=== PATIENT | male | born 1930 | race Caucasian/White ===

== ENCOUNTER 2017-04-20 09:00 | Inpatient (IN) | payer MEDICARE, BC ==
[~2017-04-20] VITALS: Ht 167.6 cm; Wt 109.8 kg
--- NOTE | ~2017-04-20 | DS ---
PATIENT'S NAME: AZAEL ZAMBRANO [facility] AGE: 86 Y [address] ROOM: G6321 [place], [place] [address] LOCATION: GPCU ADMIT DATE: 04/20/2017 Discharge Summary DISCHARGE DATE: 05/08/2017 FAMILY PHYSICIAN: Char Courtney ATTENDING PHYSICIAN: Dahlia Lainez FINAL DIAGNOSES: 1. Xut-KR-qgbjpqxwk myocardial infarction, status post CABG, three-vessel. 2. 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 3. Hematuria, status post TURP. 4. Insulin-dependent diabetes mellitus, poorly controlled. 5. Right carotid artery disease. 6. Acute on chronic hypoxic respiratory failure. 7. Benign prostatic hypertrophy with bladder outlet obstruction. 8. Essential hypertension. 9. Acute on chronic systolic ejection fraction, EF of 45%. 10. Paroxysmal atrial fibrillation. 11. Iron deficiency. PROCEDURES: 1. He had a left heart catheterization on April 21. 2. Right carotid endarterectomy on April [address] Freitas. 3. CABG three-vessel on April [address] Martinez. 4. Kidney biopsy in 2013. HISTORY OF PRESENT ILLNESS: Please see the history and physical for details of admission. In short, the patient presented one day after having his cystoscopy performed in [place] for benign prostatic hypertrophy and outlet obstruction. He went home, and post procedure did fine. He notes that he was eating at a diner and had experienced shortness of breath while eating a sandwich and he felt chilled. He was able to go home and take a nap, but he got pretty uncomfortable and described some aching, and an increasing shortness of breath. He did call the EMS and was taken to the hospital in [place] where he was found to have an elevated troponin and had acute hypoxic respiratory failure. The patient was transferred here for definitive care. LABORATORY DATA AND DIAGNOSTIC STUDIES: Sodium on admission was 141, it has remained very stable, and was 141 at discharge. Potassium on admission was 3.9, it got as high as 5.3 on April 26, and most prior to discharge was 4.3. CO2 on admission was 22, and most prior to discharge was 30. BUN on admission was 33, got as high as 62 on April 26, and most prior to discharge was 43. Creatinine on admission was 2.1, and most prior to discharge it was 2.1. Magnesium most prior to discharge was 2.3. Cholesterol was 88, triglycerides were 154, HDL was 28, and LDL was not able to be calculated. On admission, his troponin was 55.3. His proBNP on admission was 16,746. Hemoglobin A1c PATIENT'S NAME: AZAEL ZAMBRANO [facility] AGE: 86 Y [address] ROOM: [place] [address] LOCATION: GPCU ADMIT DATE: 04/20/2017 Discharge Summary DISCHARGE DATE: 05/08/2017 FAMILY PHYSICIAN: Char Courtney ATTENDING PHYSICIAN: Dahlia Lainez was 7.2. C-reactive protein on admission was 15.4. White blood cell count on admission was 21.4, it did come down; postoperatively, it did jump back up 18.3 and then came down, most prior to discharge was 8.8. Hemoglobin on admission was 12.3, got as low as 8, and then most prior to discharge was 11.3. Platelet count at discharge was 413. His CMP and ANCA were negative. Urinalysis on admission with 15 to 100 reds. Microbiology Data: All was negative. Ultrasound of his kidney on admission showed thinning of the cortex. CTA did not show any severe disease. Chest x-ray on admission did show pulmonary edema. Cardiovascular Data: Echocardiogram on admission showed that the ejection fraction was 45% to 50%, and mildly dilated left atrium. He had moderate concentric left ventricular hypertrophy. Venous Doppler on admission was negative. Duplex scanning did show that he had right carotid artery disease severe at 60% to 79% and left at 60% to 79%. HOSPITAL COURSE: The patient was admitted, and was felt to have had a non-ST- elevated myocardial infarction. Cardiology was consulted as well as Dr. Brewster from the Urology standpoint. The patient did undergo a cystoscopy with Dr. Nate Durán postoperatively for the hematuria. Please see his note for full details. Dr. Santana did feel that the patient needed to go to the [facility]. We did give him aggressive hydration around the heart catheterization because of his renal dysfunction. Nephrology did follow along. His heart catheterization returned showing that he had multi-vessel disease. Dr. Martinez was consulted. The patient initially planned to go to the Operating Room on April 24. He was in acute congestive heart failure, and we did diurese him, watching his kidney function closely and holding medications that were somewhat toxic for the kidneys. His duplex Doppler scan did indicate that he needed carotid endarterectomy. Dr. Freitas did see him. The planned surgery was then moved back to April 26, at which time, the patient had both a three- vessel bypass and a right carotid endarterectomy. Please see the operative notes for both of those. Postoperatively, the patient was seen in the Intensive Care Unit. He did overall do quite well postoperatively. He was extubated immediately postop and we were able to get him weaned off the pressors. He was able to move back to PCU. We did work very aggressively with adjusting his insulin, using a long-acting insulin and the carb count to bring his sugars under better control. He did have a chest tube for a while. Renal did follow along. I did order some studies to evaluate because it was PATIENT'S NAME: AZAEL ZAMBRANO [facility] AGE: 86 Y [address] ROOM: [address] [address] LOCATION: GPCU ADMIT DATE: 04/20/2017 Discharge Summary DISCHARGE DATE: 05/08/2017 FAMILY PHYSICIAN: Char Courtney ATTENDING PHYSICIAN: Dahlia Lainez found that he had significant proteinuria. He was started on amiodarone, and we were able to get him started back on his Eliquis. The decision was made to continue him on the short and long-acting insulins as he would get better blood sugar control. Because of the proteinuria, Nephrology did a number of studies including a 24-hour urine protein electrophoresis, serum protein electrophoresis, serum for free light chains, ANCA panel, STEVE, double-stranded DNA, complements, hepatitis B serology, and hepatitis C serology. While these studies were pending, it was felt that we might need to proceed with a kidney biopsy. We did have to hold his Eliquis in order to do this. The Eliquis was held, and the patient did have a kidney biopsy on Monday, May 05. He was monitored through the weekend, and it was felt that he would be stable for discharge. During the time that he was in the hospital, adjustments were made in his medications to control his blood pressure. Adjustments were made into his insulin doses, to try and keep his sugars between the 120 and 180 range. He did work with PT and OT. We did eventually get his chest tube out. It was felt that he would need assistance, and that we would send him to the [facility] Bed. He is to see Dr. Batista and follow up in [place]. On discharge, he is to contact Dr. Nate Durán for appointment. Dr. Castañeda will see him on May 29, and he needs to see Dr. Martinez in two weeks. He also needs a followup appointment. That appointment can be arranged with a followup with Dr. Durán. He is to go on an 1800-calorie, 2-g sodium diet. He needs to have strict sternal precautions till June 07, and weightbearing as tolerated. He is currently on 2 L per nasal cannula. On admission, he only was 2 L at night. Song needs to remain in place until he sees Dr. Durán. He will need the diabetic nurse to work on carb counting. He can remove his sutures in his left ankle and groin on May 17. DISCHARGE MEDICATIONS: 1. Amiodarone 200 mg twice daily. 2. Lipitor 20 mg at bedtime. 3. Coreg 3.125 mg twice daily. 4. Vitamin D 400 units daily. 5. Colace 100 mg three times daily. 6. Pepcid 20 mg daily. 7. Lasix 40 mg daily. 8. Humibid LA 600 mg twice daily. 9. NovoLog mild sliding scale; NovoLog 3 units per 15 g of carb consumed three times daily with meals and with snacks. 10. Levemir 22 units at bedtime. 11. Synthroid 75 mcg daily. 12. MiraLAX 17 g twice daily. 13. Potassium 20 mEq daily. 14. Senokot two tablets at bedtime. 15. Flomax 0.4 mg twice daily. 16. Dulera 250/5 two puffs twice daily. PATIENT'S NAME: AZAEL ZAMBRANO [facility] AGE: 86 Y [address] ROOM: [address] [place], [place] [address] LOCATION: GPCU ADMIT DATE: 04/20/2017 Discharge Summary DISCHARGE DATE: 05/08/2017 FAMILY PHYSICIAN: Char Courtney ATTENDING PHYSICIAN: Dahlia Lainez 17. Tylenol 650 mg every four hours as needed. 18. Grayson 5/325 one every 4 hours as needed for pain. 19. Dulcolax 10 mg suppository daily as needed for constipation. 20. Dextrose 25 mL on the hypoglycemia protocol. 21. Glucagon 1 mg for hypoglycemia. 22. Glucose 16 g for hypoglycemia. 23. Milk of magnesia 30 mL daily for constipation. 24. Proventil two puffs every 4 hours as needed for shortness of breath. 25. Eliquis 2.5 mg twice daily. 26. Aspirin 81 mg daily. 27. Symbicort 160/4.5 two puffs twice daily. OVERALL PROGNOSIS AT DISCHARGE: Good. The patient did voice understanding of his condition and to follow up. CLIFTON MONTANEZ MD LAW/modl /[id number] CC: DO Nate Aguilera MD Daniel J McGowan, MD d: 05/09/17 0327 t: 05/09/17 1653, DISCHARGE SUMMARY
--- NOTE | ~2017-04-20 | OR ---
PATIENT'S NAME: AZAEL WANG [facility] AGE: 86 Y [address] ROOM: [facility] [place], [place] [address] LOCATION: GICU ADMIT DATE: 04/20/2017 OR/Procedure Report DISCHARGE DATE: FAMILY PHYSICIAN: SARAH MARTINEZ ATTENDING PHYSICIAN: FLEX ENCARNACION SURGEON: Rosalio Nova MD SALESFORCE ADMINISTRATOR: DATE OF PROCEDURE: 04/26/2017 PROCEDURE PERFORMED: The following lines were placed during the patient's right carotid endarterectomy and coronary artery bypass grafting. INDICATIONS: Azael Wang is an 86-year-old gentleman with a history of severe COPD, he is oxygen dependent, he is morbidly obese, hypothyroid, he has chronic renal insufficiency. He has also peripheral vascular disease in the form of right carotid stenosis and he has 3-vessel coronary artery disease. He is status post non-ST MA several days ago. He was seen last night prior to the procedure by Dr. Jackson, who discussed risks, benefits, and alternatives with the patient. He agreed to the plan as stated. I met the patient in the preop holding area this morning at approximately 06:20. He had no further questions and we proceeded. DESCRIPTION OF PROCEDURE: PROCEDURE #1: Placement of arterial line: The patient's right arm was selected, placed on the table, dorsiflexed the wrist, and sterilely prepped with chlorhexidine. Skin wheal was raised with 1% lidocaine over the radial pulse approximately 5 inches of the arm. The artery was then cannulated on the first pass using an Arrow art line kit. Good flash arterial blood was obtained. A wire that was then threaded into the artery and then the catheter threaded off the wire. This was flushed with heparinized saline and affixed to the patient's wrist using sterile Tegaderm and tape. No ultrasound was used to identify the arteries in the neck as the right carotid precluded placement there. We took the patient to OR #4 where he underwent uneventful induction of general anesthesia and intubation with an 8-0 tube. PROCEDURE #2: With the airway controlled procedure #[address], placement of central line. The patient was placed in Trendelenburg position. The area overlying the left subclavian was sterilely prepped with chlorhexidine while I scrubbed my hands, gloved, and gowned. Maximal sterile barrier was placed. At that point, a needle was inserted. An 18-gauge long needle was inserted at the junction of middle and distal thirds of the clavicle, aiming towards the sternum, took a couple of passes, but was able to obtain dark venous blood. The wire was PATIENT'S NAME: AZAEL WANG [facility] AGE: 86 Y [address] ROOM: [place] [address] LOCATION: GICU ADMIT DATE: 04/20/2017 OR/Procedure Report DISCHARGE DATE: FAMILY PHYSICIAN: SARAH MARTINEZ ATTENDING PHYSICIAN: FLEX ENCARNACION threaded without difficulty. Brief atrial pause revealing intraatrial placement. This resolved with pullback of the wire. At that point, a 9- Icelandic 10 cm introducer was inserted over the wire and this was then sutured in place with 2-0 silk. The central lumen was filled with an SLIC catheter. All lumens flushed and ariel freely. A 30 mL of blood was removed for the patient's venous solution. Then, the entire vein was covered with sterile Tegaderm and used for the duration of the case. At that point, the carotid artery was endarterectomized and repaired and the patient's drapes were removed. At that point, MIKAYLA was placed after suctioning the stomach with an 18-Icelandic nasogastric tube. The MIKAYLA probe was placed in the posterior pharynx and guided very gently given the patient's anticoagulation into the posterior pharynx and down into the esophagus. Pictures obtained were of good quality and adequate for interpretation. This was used for monitoring during the case. Thank you very much for allowing me to participate in Mr. Azael Wang's care. If you have any questions regarding the lines or MIKAYLA placement, please do not hesitate to call. MD ERIK PIKE/holly /[id number] d: 04/26/172002 t: 07/27/17 1553, OPERATIVE SUMMARY
--- NOTE | ~2017-04-20 | ENPV ---
Vascular Lower Extremity Vein Mapping Procedure Demographics Patient Name AZAEL ZAMBRANO Date of Study 04/22/2017 Patient Number [id number] Gender Male Date of 1930 Age 86 Visit Number [id number] Height 66 Accession Number [id number] Weight 261.01 Referring Michelle Pepe DO Interpreting Fortino Leon MD Physician Roz PATINO Physician Physician Ordering Physician Michelle Pepe It Operations Specialist DO Rubber Cutting Machine Tender Mona Santamaria RDCS, RVT Conclusions Summary Bilateral adequate veins. Procedure Type of Study: Veins:Lower Extremity Vein Mapping, Vein Mapping NH. Indications for Study:Pre-op CABG. Appropriate Use Criteria:7 Allergies - Sulfa. - Penicillin. - Antibiotics:(Cipro). Patient Status:Routine. Study Location:Inpatient Portable. Technical Quality:Adequate visualization. Risk Factors - The patient's risk factor(s) include: diabetes mellitus, dyslipidemia, arterial hypertension and prior NM . - The patient has a former tobacco history. - The patient's last creatinine was 1.8 mg/dl. Velocities are measured in cm/s ; Diameters are measured in cm + ++--------++--------+ !Superficial - Great Saphenous Vein !!Right !!Left ! + ++--------++--------+ !Location !!Diameter!!Diameter! + ++--------++--------+ !Sapheno Femoral Junction !!0.8 !!0.65 ! + ++--------++--------+ !GSV High Thigh !!0.59 !!0.53 ! + ++--------++--------+ !GSV Mid Thigh !!0.53 !!0.54 ! + ++--------++--------+ !GSV Low Thigh !!0.37 !!0.34 ! + ++--------++--------+ !GSV Knee !!0.36 !!0.36 ! + ++--------++--------+ !GSV High Calf !!0.37 !!0.27 ! + ++--------++--------+ !GSV Mid Calf !!0.34 !!0.39 ! + ++--------++--------+ !GSV Low Calf !!0.43 !! ! + ++--------++--------+ Signature dtt: JORGE DOBSON dtyahaira: 04/22/17 1150 Physician Self Edit
--- NOTE | ~2017-04-20 | CATH ---
Cardiac Diagnostic + PCI Report Demographics Patient Name JUAN MANUEL Mejia Gender Male Date of 1930 Age 86 year(s) Patient Number [id number] Date of Study 04/21/2017 Visit Number [id number] Room Number G6325 [place] [id number] Ht 167.64 cm Wt 118.39 kg Referring [facility] Primary Physician Physician Pascale HORN Performing [facility] Secondary Physician Physician Pascale HORN Diagnostic [facility] Assisting Physician Physician Pascale HORN Interventional [facility] Physician Design Printing Machine Setter Physician Pascale HORN Findings and Conclusions Diagnostic Findings and Conclusion 1.Triple vessel CAD, obstructive lesions in distal RCA, mid to distal LAD and diagonal, completely occluded prox cx. 2. LVEDP 18 mmHg. Diagnostic Recommendations 1. PTCA of Circ to restore flow and evaluate if vessel is big enough for CABG 2. CTS consult for CABG Interventional Findings and Conclusion S/P Successful PTCA of Circ with 10% residual, small vessel Interventional Recommendations Dr Martinez's plan for CABG on Monday if patient agreeable. Continue ACS protocol and heparin drip for now. Procedure Description The patient was brought to the diagnostic cardiac catheterization-EP laboratory in the fasting, non-sedated state. Informed consent was obtained in the written and verbal form after the risks and benefits were explained. The patient had no further questions and agreed to proceed. The planned puncture-incision site(s) were shaved and prepped with ChloraPrep and draped in the usual sterile manner. Conscious sedation, supplemental oxygen, and pain control medications were delivered by a registered nurse under physician guidance. Surface ECG rhythm, blood pressure measurement, and pulse oximetry were monitored throughout the procedure. Arterial access. The access site was infiltrated with lidocaine. The vessel was entered with the Seldinger technique. A sheath was advanced into the vessel and used for catheter placement. Selective left coronary angiography. A catheter was advanced into the left coronary vessel ostium under Fluoroscopic guidance. Contrast was injected by hand. Images were obtained in multiple projections. Selective right coronary angiography. A catheter was advanced into the right coronary vessel ostium under fluoroscopic guidance. Contrast was injected by hand. Images were obtained in multiple projections. Left heart catheterization. A catheter was advanced across the aortic valve to the left ventricle under fluoroscopic guidance. Resting hemodynamics were obtained. Angioplasty: A guiding catheter was used to intubate the vessel. A 0.14 wire was used to cross the lesion. A balloon was positioned across the lesion and inflated. Post placement angiograms were performed. Arterial artery hemostasis was achieved. The patient was transferred to a regular nursing floor via cart accompanied by a nurse. The patient left the laboratory in stable condition. Diagnostic Cath Status: Urgent Interventional Cath Status: Urgent Procedure Procedure Type Diagnostic procedure:Angiography:, Coronary Angios w/LHC PCI procedure:PTCA:, CFX Indications: NSTEMI. The procedure was explained in detail to the patient. Risks, complications and alternative treatments were reviewed. Written consent was obtained. Medications Reviewed with Patient prior to Procedure. Angiographic Findings Dominance: Right Cardiac Arteries and Lesion Findings LMCA: Lesion on LMCA: Proximal subsection.10% stenosis . LAD: There is a previous stent on Mid LAD Mid subsection showing focal ISR. There is a previous stent on Dist LAD Distal subsection showing diffuse ISR. There is a previous stent on 1st Diag Mid subsection showing focal ISR. Lesion on Prox LAD: Ostial.40% stenosis . Lesion on Mid LAD: Mid subsection.40% stenosis . Lesion on Dist LAD: Distal subsection.80% stenosis . Lesion on 1st Diag: Mid subsection.70% stenosis . LCx: Lesion on Prox CX: Proximal subsection.100% stenosis 10 mm length reduced to 10%. Pre procedure RAVINDER 0 flow was noted. Post Procedure RAVINDER III flow was present. The guidewire cross was successful.The lesion was diagnosed as a low risk lesion.Culprit lesion. Devices used - Runthrough NS .014 x 180. Number of passes: 1. - Emerge Balloon 2.0 x 15. 2 inflation(s) to a max pressure of: 8 madeline. RCA: There is a previous stent on Prox RCA Proximal subsection showing focal ISR. Lesion on Mid RCA: Mid subsection.60% stenosis . Lesion on Dist RCA: Distal subsection.80% stenosis . Lesion on 1st RPL: Mid subsection.60% stenosis . Ramus: Lesion on Ramus: Mid subsection.10% stenosis . Coronary Tree Procedure Data Procedure Date Date: 04/21/2017Start: 01:28 PMEnd: 02:09 PM Entry Locations - Retrograde Percutaneous access was performed through the Right Radial artery (Primary location). A 6 Fr sheath was inserted. Unsuccessful closure attempt was performed using: an R band. Hemostasis was successfully obtained using Mechanical Compression. Closure Comments: R) band applied by Jessica. 13 ml of air. Procedure Medications Order and Administration + + + + + !Time !Medication !Dosage !Route ! + + + + 04/21/2017 01:24 !Versed !1 mg !I.V. ! !PM ! ! ! ! + + + + 04/21/2017 01:30 !Radial Verapamil !2.5 mg !I.A. ! !PM ! ! ! ! + + + + + !04/21/2017 01:32 !Heparin (ACC_3) !5000 units !I.V. ! !PM ! ! ! ! + + + + + 04/21/2017 01:46 !Angiomax (Bivalirudin) !90 mg !I.V. bolus ! !PM !(ACC_5) ! ! ! + + + + + !04/21/2017 01:48 !Angiomax (Bivalirudin) !1.75 mg/kg/hr!I.V. drip ! !PM !(ACC_5) ! ! ! + + + + + !04/21/2017 01:54 !Angiomax (Bivalirudin) ! !I.V. drip ! !PM !(ACC_5) ! ! ! + + + + + Devices Used - A5 Fr. BS JR 4 Diag. Catheterwas used for:Right coronary angiography. - A5 Fr. BS JL 3.5 Diag. Catheterwas used for:Left coronary angiography. - A6 Fr. EBU 3.5 Guide Catheterwas used for:Circumflex Intervention. Contrast Material - Isovue 36123 ml Fluoroscopy Time: Diagnostic: 8:30 minutes. Total: 8:30 minutes. Fluoroscopy Dose: Diagnostic: 1557 mGy. Total: 1557 mGy. Estimated Blood Loss: 10 ml. Additional [facility] PCI Information PCI Indication:PCI for high risk Non-STEMI or unstable angina. Medical History Performed Procedures and Imaging Results - No [facility] stress or imaging studies were performed. Allergies - Sulfa. - Penicillin. - Antibiotics:(Cipro). Risk Factors The patient risk factors include:prior PCI;hypertension, family history of premature CAD, diabetes mellitus, last creatinine: 1.8 mg/dl, creatinine clearance: 50.24 ml/min, dyslipidemia, former tobacco use, prior heart failure and prior HI . Admission Data Admission Date: 04/20/2017 Admission Time: 10:50 AM Admit Source: [facility] Insurance Payors: Medicare. Admission Medications + +------+------+ + + + + !Medication !Dosage!Times !Last !Last !Administered !Comments ! ! ! !Per !Delivery !Delivery ! ! ! ! ! !Day !Date !Time ! ! ! + +------+------+ + + + + !Aspirin ! ! ! ! !Yes ! ! !(any) ! ! ! ! ! ! ! + +------+------+ + + + + !Statin (any)! ! ! ! !Yes ! ! + +------+------+ + + + + !ARB (any) ! ! ! ! !Yes ! ! + +------+------+ + + + + !Nitrates (iv! ! ! ! !Yes ! ! !or buccal) ! ! ! ! ! ! ! + +------+------+ + + + + !Beta Maddy! ! ! ! !Yes ! ! !(any) ! ! ! ! ! ! ! + +------+------+ + + + + Clinical Evaluation Leading to Procedure - The patient's CAD presentation was assessed as: Non-STEMI. - The patient's anginal syndrome during the past two weeks was assessed as: Class IV according to the [place] Cardiovascular [employer] Classification System (CCS). Anti-anginal medications were prescribed during the past two weeks. The medication is: Beta Blockers. - The patient has been in a state of heart failure within the past two weeks. - The patient's heart failure status was assessed as NYHA Class IV. Hemodynamics Condition: Rest O2 Consumption: Estimated: 260.27Heart Rate: 77 bpm Pressures (mmHg) +-----+ + !Site !Pressure ! +-----+ + !LV !126/14 ,20 ! +-----+ + !LV !127/13 ,18 ! +-----+ + !AO !135/60 (92) ! +-----+ + !LV !131/14 ,20 ! +-----+ + Valve Gradients and Areas + +---------+---------+---------+ +---------+ + !Valve !Peak !Mean !Area !Index !Flow !Source ! + +---------+---------+---------+ +---------+ + !Aortic !0 !0 ! ! ! ! ! + +---------+---------+---------+ +---------+ + !Aortic !0 !0 ! ! ! ! ! + +---------+---------+---------+ +---------+ + Shunts Oxygen Values O2 Capacity 141.44 O2 Consumption 260.27 Signatures dtt: PASCALE WILLIS dtd: 04/21/17 1328 Physician Self Edit
--- NOTE | ~2017-04-20 | OR ---
PATIENT'S NAME: AZAEL ZAMBRANO [facility] AGE: 86 Y [address] ROOM: [place] [address] LOCATION: GPCU ADMIT DATE: 04/20/2017 OR/Procedure Report DISCHARGE DATE: FAMILY PHYSICIAN: SARAH MARTINEZ ATTENDING PHYSICIAN: FLEX ENCARNACION SURGEON: Brenda Durán MD RETAIL COORDINATOR: DATE OF PROCEDURE: 04/21/2017 PREOPERATIVE DIAGNOSES: 1. Gross hematuria. 2. Inadequate Song catheter. POSTOPERATIVE DIAGNOSES: 1. Gross hematuria with clots. 2. Traumatic injury to the bulbous urethra. 3. Benign prostatic hypertrophy. PROCEDURES: 1. Cystoscopy and evacuation of clots. 2. Cystoscopy and fulguration of bleeding points. 3. Insertion of #20-Spanish three way Song catheter. DESCRIPTION OF PROCEDURE: After adequate anesthesia, he was prepped and draped. Cystoscope was passed. Anterior urethra was normal, and the bulbous urethral area was really chewed up, looked pretty nasty. I was able to manipulate the scope through this area. The external sphincter was normal. The prostatic fossa showed early BPH with bleeding. The bladder was filled with clots. With the Ellik evacuator, all the clots were irrigated from the bladder and then with the Bugbee, the prostatic bleeding was controlled. With using a stylet, I was able to easily insert a #20 Song catheter, irrigated easily and clearly. It was connected to continuous bladder irrigation, and he was accompanied to the recovery area. BRENDA DURÁN MD EKL/modl PATIENT'S NAME: AZAEL ZAMBRANO [facility] AGE: 86 Y [address] ROOM: [place] [address] LOCATION: GPCU ADMIT DATE: 04/20/2017 OR/Procedure Report DISCHARGE DATE: FAMILY PHYSICIAN: SARAH MARTINEZ ATTENDING PHYSICIAN: FLEX ENCARNACION /[id number] d: 04/21/17 1219 t: 04/26/17 0449, OPERATIVE SUMMARY
--- NOTE | ~2017-04-20 | CON ---
PATIENT'S NAME: AZAEL ZAMBRANO [facility] AGE: 86 Y [address] ROOM: [address] [place], [place] [address] LOCATION: GPCU ADMIT DATE: 04/20/2017 Consultation DISCHARGE DATE: FAMILY PHYSICIAN: Darlin Mclaughlin MD ATTENDING PHYSICIAN: FLEX ENCARNACION DATE OF CONSULTATION: 04/20/2017 REFERRING PHYSICIAN: ABBIE WILLIS MD REASON FOR CONSULTATION: GARFIELD versus GARFIELD on CKD versus CKD. HISTORY OF PRESENT ILLNESS: An 86-year-old male patient with history of hypertension, diabetes for 20-25 years, coronary artery disease status post PCI on multiple occasions at least with 5 stents, currently decided [place], transferred to our facility after developing an NSTEMI from [facility] at [facility]. During the routine lab test at [facility], creatinine was found to be 2 with estimated GFR of 30. Nephrology consultation has been called for renal insufficiency. The patient was not aware of any kind of renal insufficiency in the past. However, did mention that he was on metformin, which was put on hold by his primary care provider at [facility]. We got the lab records from [facility], which shows that the creatinine was between 2-2.2 in December this year. The patient's current creatinine is also in the 2 range. Notably, the patient does have significant bladder issues with neurogenic bladder, incomplete voiding, and increased postvoid residual. He was following with Urology because of a recent UTI episode, which was not getting corrected with conventional antibiotic regimen. Yesterday, at [facility], the patient did have a cystoscopy and went back to [place] and shortly after that, he started to have chest pain and significant shortness of breath for which he called 911 and was taken to the [facility], where he was found to have a troponin of 25 and significantly elevated CPK. The patient was subsequently transferred here for further evaluation and management. However, after coming here, the patient continues to have significant gross hematuria. Urology has been consulted. However, has not evaluated the patient's yet. However, tentative plan for CBI overnight. Cardiology is on the case and was planning for a cardiac cath, especially with history of hypertension, diabetes, significant coronary artery disease, multiple PCI, and rising troponin. The patient is currently although pain-free, but still has significant shortness of breath. No complaint of nausea, vomiting, or diarrhea. The patient has no fever, cough, chills, or rigor. REVIEW OF SYSTEMS: GENERAL: No fever. No chills or rigor. HEENT: No sore throat. No sinus congestion. CVS: Complaining of chest pain and shortness of breath as mentioned in the HPI. No leg swelling. RESPIRATORY: Shortness of breath as mentioned above. No cough or wheezing. GENITOURINARY: Significant gross hematuria. The patient does have a history of incomplete bladder evacuation and increased PVR and had a cystoscopy done yesterday. GASTROINTESTINAL: No abdominal pain. No abdominal distention. No nausea or vomiting. NEUROLOGIC: No weakness. No seizures. SKIN: No rash. No itching. ALLERGIES: No seasonal allergy. No hayfever. ENDOCRINE: No heat intolerance. No cold intolerance. PSYCHIATRIC: No sadness. No crying spells. No history of panic attack.PATIENT'S NAME: AZAEL ZAMBRANO [facility] AGE: 86 Y [address] ROOM: [place] [address] [facility] ADMIT DATE: 04/20/2017 Consultation DISCHARGE DATE: FAMILY PHYSICIAN: Darlin Mclaughlin MD ATTENDING PHYSICIAN: FELX ENCARNACION PAST MEDICAL HISTORY: 1. Hypertension. 2. Diabetes. 3. Coronary artery disease, status post multiple PCI with at least 5 stents. 4. Neurogenic bladder with incomplete bladder voiding. 5. Recent UTI. PAST SURGICAL HISTORY: Multiple PCI in the past. FAMILY HISTORY: History of hypertension and diabetes in the family in both parents. Father of coronary artery disease. SOCIAL HISTORY: Denied any significant alcohol or IV drug abuse. He was a former smoker. PHYSICAL EXAMINATION: VITAL SIGNS: Blood pressure 110/50, respiratory rate 18, pulse 69, temperature 98.4, saturating 96% on room air. GENERAL: Not in apparent distress. HEAD: Moist mucous membranes. Bilateral PERRLA, EOMI. NECK: No JVD, thyromegaly or lymphadenopathy. CVS: S1-S2 plus ejection systolic murmur at the aortic area. CHEST: Few bibasilar crackles. Otherwise, no wheeze. ABDOMEN: Soft, nontender, nondistended. Bowel sounds present. EXTREMITIES: No cyanosis, clubbing, jaundice. No dependent edema. MUSCULOSKELETAL: No limitation of range of motion. SKIN: No pallor, cyanosis, icterus. CHIEF NURSE EXECUTIVE: Alert and oriented x3. No gross findings. LABORATORY EVALUATION: Troponin 55.3, CPK 54. CBC: Hemoglobin 12.3, WBC 21.4, platelets 164. Chemistry: Sodium 141, potassium 3.9, chloride 109, bicarb 22, BUN 33, creatinine 2.1. Glucose 229, calcium 8.5, albumin 3.1, phosphorus 2.5, HBA1c 7.2, INR 1.04. UA: Specific gravity 1.010, pH 7, 4+ turbidity, 3+ protein, 2+ blood, 0-2 wbc, rbc 50-100. Bacteria negative. Urine and creatinine 67 and urine protein 2070 mg/dL. CK-MB 68.3.PATIENT'S NAME: AZAEL ZAMBRANO [facility] AGE: 86 Y [address] ROOM: [place] [address] LOCATION: GPCU ADMIT DATE: 04/20/2017 Consultation DISCHARGE DATE: FAMILY PHYSICIAN: Darlin Mclaughlin MD ATTENDING PHYSICIAN: FLEX ENCARNACION ASSESSMENT AND PLAN: 1. Renal insufficiency: Review of the old records suggest the patient's renal function is currently at baseline. Possible etiology of chronic kidney disease is hypertension, nephrosclerosis, as well as diabetic nephropathy, but significant proteinuria, sinus, and possible combination of both. We will try to get some more record from [facility] with trend of the urine protein creatinine ratio in the past. Now, the patient has almost 30 g proteinuria, which suggest that the patient has significant diabetic nephropathy. Apparently, the creatinine in the recent time is much better controlled. However, the patient has a long history of uncontrolled diabetes in the past. The patient has been taken off his metformin because of renal insufficiency and started on insulin regimen, but we are not sure about the compliance with dietary restriction or medication regimen. We will do a renal ultrasound, especially in context of chronic hematuria, recent onset hematuria, and to rule out any significant obstruction. Also, to look at the renal architecture, cortical echotexture, and corticomedullary differentiation. Please send UA, urine lytes, and urine osmolality. Monitor his renal panel closely, avoid hemodynamic stress, and continue gentle hydration with NS at the rate of 75 mL/h. 2. Dsz-OB-cgmyvro elevation myocardial infarction. Cardiology would like to do a cardiac cath with possible PCI tomorrow and placement of either bare- metal versus ROSALIO. Although, there is significant risk of contrast- induced nephropathy with advanced renal insufficiency in the background, but his troponin is rising. The patient has significant history of hypertension, diabetes, and coronary disease in the background. Considering the risk and benefit, the patient may have to undergo the cardiac cath. We will defer that to the Cardiology team for JESSE prophylaxis. We will continue the normal saline bolus at 75 mL/h for now preprocedure and 6 hours postprocedure. We will also start Mucomyst 1200 mg p.o. b.i.d. with one dose given tonight. We would encourage him to use iso-osmolar contrast at lowest volume possible and avoid repetitive exposure and the patient has been explained about the risk of contrast- induced nephropathy with possible need for dialysis if there is significant renal injury with the contrast exposure. 3. Diabetes. Last A1c today is 7.2, which is apparently better controlled as compared in the past as per the patient. We will get some old record about the diabetes control and medication regimen from [facility]. 4. Hypertension. Currently, blood pressure was at the lower side of the acceptable range. We will hold off losartan, especially in context of contrast exposure tomorrow and we will restart after the procedure. The patient has been educated to consume low-salt diet. Thank you for allowing me to participate in this patient's care. We will closely monitor the patient's progress along with you. SHAUN GORMAN MD /modl /[id number] d: 04/21/17 0247 t: 04/27/17 1610, CONSULTATION REPORT
--- NOTE | ~2017-04-20 | CON ---
PATIENT'S NAME: AZAEL ZAMBRANO [facility] AGE: 86 Y [address] ROOM: [address]6325 [place], [place] [address] LOCATION: GPCU ADMIT DATE: 04/20/2017 Consultation DISCHARGE DATE: FAMILY PHYSICIAN: Darlin Mclaughlin MD ATTENDING PHYSICIAN: FLEX ENCARNACION DATE OF CONSULTATION: 04/20/2017 REFERRING PHYSICIAN: PASCALE WILLIS MD REASON FOR CARDIOLOGY CONSULT: Chest pain and elevated cardiac enzymes. HISTORY OF PRESENT ILLNESS: This is an 86-year-old male who underwent a cystoscopy yesterday due to history of BPH and having difficulties with high post residual volumes. During his postprocedure time, he experienced complaints of chest pressure that he described as achiness across the top half of his chest above his sternum as well as heaviness to his arms, but states his arms are usually heavy. A plan was made to transfer to [facility] for higher level of care due to elevated cardiac enzymes. His enzymes upon admission to [place] are CPK of 854, CK-MB of 68.3, and troponin I of 55.3. At the time of this consult, he states his pain is almost completely resolved and still has just a very minor "ache" to his chest. His biggest concern now is of bright red blood from his Song, status post cystoscopy, but of note, he has been restarted on his Eliquis yesterday and is currently on a heparin drip per ACS protocol. PAST MEDICAL HISTORY: As listed in the HPI. Includes coronary artery disease with a history of stenting to his diagonal #1, mid LAD, and mid RCA in 2004. He received a second stent later in 2004 to his RCA and then overall experienced a non-Q- wave NV in 2011, which was managed medically. He also has a history of diabetes mellitus type 2, hypertension, hyperlipidemia, obstructive sleep apnea with CPAP use, paroxysmal atrial fibrillation, and long-term anticoagulation with Eliquis. FAMILY HISTORY: The patient's father had a history of "heart problems." He had a sister who due to a myocardial infarction. SOCIAL HISTORY: The patient is a former cigarette smoker. He smoked 2 to 3 packs of cigarettes per day for a total of 30 years. He quit smoking in 1976. He denies alcohol or illicit drug use. PATIENT'S NAME: AZAEL ZAMBRANO [facility] AGE: 86 Y [address] ROOM: [address] [place], [place] [address] [facility] ADMIT DATE: 04/20/2017 Consultation DISCHARGE DATE: FAMILY PHYSICIAN: Darlin Mclaughlin MD ATTENDING PHYSICIAN: FLEX ENCARNACION CURRENT MEDICATIONS: 1. Dulera 200/5 mcg 2 puffs inhaled twice daily. 2. Heparin IV per ACS protocol. 3. Betapace 40 mg p.o. daily. 4. Cozaar 25 mg p.o. daily. 5. Flomax 0.4 mg p.o. twice daily. 6. Lasix 20 mg p.o. daily. 7. Synthroid 75 mcg p.o. daily. 8. Lipitor 20 mg p.o. daily in the evening. 9. Macrobid 100 mg p.o. twice daily. 10. Mucomyst 1200 mg p.o. twice daily. 11. Vitamin D 400 units p.o. daily. 12. NovoLog subcu on a moderate sliding scale per a.c. and h.s. Accu-Cheks. MEDICATION ALLERGIES: Include penicillin, sulfa, and ciprofloxacin. REVIEW OF SYSTEMS: Pertinent positive review of systems listed in the HPI. All other review of systems evaluated and negative. PHYSICAL EXAMINATION: VITAL SIGNS: Temperature 97.8, pulse 74, respirations 20, blood pressure 125/60, O2 saturation 96% on 2 L nasal cannula. The patient weighs 118.9 kilograms. SKIN: [place], warm, and dry. EYES: Sclerae clear. No xanthelasma. ENT: Oral mucosa is pink and moist. No jugular venous distention. No carotid bruits. CHEST: Respirations are even and unlabored. LUNGS: Clear to auscultation. His lung sounds are diminished to bilateral lower lobes. HEART: Irregular rate and rhythm. Normal S1, S2. No murmurs, rubs, or gallops. ABDOMEN: Soft and nontender. MUSCULOSKELETAL: Equal muscle strength to upper and lower extremities bilaterally against resistance. EXTREMITIES: Peripheral pulses palpable. No clubbing or cyanosis. Does have trace lower extremity edema present. PSYCH: Alert and oriented. Mood and affect are appropriate. IMPRESSION AND PLAN: Per Dr. Pascale Willis. 1. Non-ST elevated myocardial infarction. Plan will be to trend his cardiac enzymes and check an echocardiogram to fully evaluate ejection fraction PATIENT'S NAME: AZAEL ZAMBRANO [facility] AGE: 86 Y [address] ROOM: [address] [address] [facility] ADMIT DATE: 04/20/2017 Consultation DISCHARGE DATE: FAMILY PHYSICIAN: Darlin Mclaughlin MD ATTENDING PHYSICIAN: FLEX ENCARNACION as well as look for wall motion or valvular abnormalities. Initial plan was to urgently taken him to the catheterization suite for evaluation of his coronary anatomy, but on full evaluation of his hematuria as well as ezijr-gb-jijauru kidney injury, plan was made to hydrate and monitor and receive full consults and recommendations before proceeding with heart cath. 2. Coronary artery disease. We will continue his home medications and continue to monitor with EKG closely. 3. Paroxysmal atrial fibrillation. We will continue his sotalol and he is anticoagulated currently with heparin. We will probably need to restart his Eliquis prior to discharge for long-term anticoagulation. 4. Diabetes mellitus. 5. Hypertension. 6. Hyperlipidemia. Thank you to the Hospitalist Service for this consult. We will continue to monitor, evaluate, and treat as appropriate along with you. Thank you for allowing [facility] to interact in the care of this patient. PASCUAL NGO APRN FOR MD LISSETTE THOMAS/holly /[id number] d: 04/20/17 2333 t: 05/09/17 1752, CONSULTATION REPORT
--- NOTE | ~2017-04-20 | OR ---
PATIENT'S NAME: AZAEL WANG [facility] AGE: 86 Y [address] ROOM: [address] [place] [id number] LOCATION: GPCU ADMIT DATE: 04/20/2017 OR/Procedure Report DISCHARGE DATE: FAMILY PHYSICIAN: SARAH MARTINEZ ATTENDING PHYSICIAN: FLEX ENCARNACION SURGEON: Moy Uribe DO CATERERS HELPER: DATE OF PROCEDURE: 04/26/2017 PREOPERATIVE DIAGNOSES: 1. Multivessel coronary artery disease. 2. Right internal carotid stenosis. 3. Chronic kidney disease, stage 3 to 4. 4. Obesity. 5. Diabetes. POSTOPERATIVE DIAGNOSES: 1. Multivessel coronary artery disease. 2. Right internal carotid stenosis. 3. Chronic kidney disease, stage 3 to 4. 4. Obesity. 5. Diabetes. PROCEDURE PERFORMED: Coronary artery bypass grafting x3, with left internal mammary artery bypass to the LAD, reverse saphenous vein graft to the diagonal #1, and reverse saphenous vein graft to the posterior descending artery. BRIEF HISTORY: Mr. Wang is an 86-year-old white male with the above-noted diagnosis. He has been brought to the operative suite today after informed consent was obtained. Today, he is having both CABG as well as a right carotid endarterectomy by Dr. Freitas. This has been performed without complication by Dr. Freitas and we are now called to the operative suite. He has been re-sterilely prepped and draped to prepare for sternotomy with lower extremity vein harvest. His carotid incision was sterilely packed and will be closed at the end of the bypass procedure. Sternal incision was made. The sternum was divided in the midline with sternal saw. Marrow and sternal edges were made hemostatic with electrocautery and Jarvis. Concurrently to this, the saphenous vein was harvested endoscopically from the lower extremity. The mammary retractor was placed. Left internal mammary artery was harvested in standard fashion with surgical clips and electrocautery. Prior to its division, the patient was fully heparinized. The mammary was then divided and prepared for bypass. Mammary retractor was removed and a sternal retractor was applied. Pericardium was opened. Pericardial wall was created, and cannulation sutures were placed in the ascending aorta and right atrium for bypass cardioplegia cannulas. The patient was then cannulated and connected PATIENT'S NAME: AZAEL WANG [facility] AGE: 86 Y [address] ROOM: [id number] [place], [place] [address] LOCATION: GPCU ADMIT DATE: 04/20/2017 OR/Procedure Report DISCHARGE DATE: FAMILY PHYSICIAN: SARAH MARTINEZ ATTENDING PHYSICIAN: FLEX ENCARNACION to the bypass pump without difficulty. Crossclamp was applied. Antegrade and retrograde cardioplegia was given and the heart arrested without difficulty. Posterior descending artery was identified and then opened and vein graft anastomosed to this with 7-0 Prolene. It was sized appropriately and then connected to the cardioplegia system. Another 500 milliliters of vein graft and retrograde cardioplegia was given and this was done after each venous distal anastomosis. Similar venous distal anastomosis was then created with the diagonal artery and then the left internal mammary artery was anastomosed to the left anterior descending artery again in end-to-side fashion with 7-0 Prolene. With this completed, the bulldog was removed from the mammary and the distal flow was noted as well as an intact anastomosis. The cross-clamp was now removed and a partial occlusion clamp was applied. Warm blood was now given via the retrograde cannula and the vein grafts, and we performed our proximal anastomosis. This was done with 4-0 punch and 6-0 Prolene. With these completed, the vein grafts were de-aired, bulldog was removed, and distal flow was given. Distal sites were hemostatic. Proximal sites were hemostatic. Two atrial pacemakers were placed. Spontaneous sinus rhythm had returned, but it was bradycardic in the 50s, therefore, we began atrial pacing at 80. Discontinued retrograde cannula and began the ventilations. We then weaned from cardiopulmonary bypass without difficulty. The venous cannula was removed, and appropriate volume returned from the pump to the patient. The ascending aortic cannula was now removed. Protamine was given. Copious amounts of antibiotic-infused saline was used to irrigate the sternum and mediastinum. Three chest tubes were placed, one left pleural, one posterior pericardial, one anterior mediastinal, and the temporary ventricular wire was placed. The sternum was then approximated with the ZipFix system and soft tissues were irrigated again and closed in layered fashion. All sponge, instrument, and needle counts were correct. The patient was undraped and then we re-prepped the right carotid endarterectomy incision with Betadine paint and scrub and then sterilely draped the area. The Betadine soaked 4x4s were removed from the incision. The carotid endarterectomy site was intact, barring one small leak at the distal ICA, where a 7-0 stitch was placed and this corrected this. The remainder of the soft tissues had no significant bleeding. We did replace 2 clips that were slightly dislodged and no bleeding was appreciated. The incision was then closed in a layered fashion with 0 Vicryl, 2-0 Vicryl, and 4-0 Monocryl. The patient tolerated the procedure well, was transferred to the intensive care unit in stable condition. MOY URIBE DO MCB/modl PATIENT'S NAME: AZAEL WANG [facility] AGE: 86 Y [address] ROOM: [place] [address] LOCATION: GPCU ADMIT DATE: 04/20/2017 OR/Procedure Report DISCHARGE DATE: FAMILY PHYSICIAN: SARAH MARTINEZ ATTENDING PHYSICIAN: FLEX ENCARNACION /[id number] d: 04/28/17 1226 t: 04/30/17 0310, OPERATIVE SUMMARY
--- NOTE | ~2017-04-20 | OR ---
PATIENT'S NAME: AZAEL ZAMBRANO [facility] AGE: 86 Y [address] ROOM: [place] [address] LOCATION: GICU ADMIT DATE: 04/20/2017 OR/Procedure Report DISCHARGE DATE: FAMILY PHYSICIAN: SARAH MARTINEZ ATTENDING PHYSICIAN: FLEX ENCARNACION SURGEON: Edward Freitas MD GRADE CHECKER: DATE OF PROCEDURE: 04/26/2017 PREOPERATIVE DIAGNOSIS: High-grade right internal carotid artery stenosis. POSTOPERATIVE DIAGNOSIS: High-grade right internal carotid artery stenosis. PROCEDURE: Right carotid endarterectomy with bovine pericardial patch. AUTOMATION AND CONTROL ENGINEER: LINNETTE Blake. ANESTHESIA: General. ESTIMATED BLOOD LOSS: 50 mL. OPERATIVE FINDINGS: High-grade stenosis of the right ICA with soft plaque. DESCRIPTION OF PROCEDURE: The patient was brought to the operating room, placed supine on the operating table, and placed under general anesthesia. Prepped and draped in a sterile manner. Preoperative time-out was performed. The patient had placement of right arterial line as well as a Song catheter as he was going to proceed on to CABG surgery. Preop time-out was performed. The patient received preoperative antibiotics. We made a standard incision along the anterior border of the sternocleidomastoid muscle, transected the platysma, transected the soft areolar tissue on the anterior border of the muscle, dissected out the internal jugular along its length, ligated and transected the facial vein, and retracted the internal jugular vein laterally. We then dissected out the common, the external, the internal, and the superior thyroid. We gave 5000 units of heparin. We clamped proximally and distally in all arteries; placed a clip on the superior thyroid; removed the clamp from the internal; performed a back pressure, which showed that the pressure was 55 to 60, therefore no shunt was required. We clamped the artery, made arteriotomy from the common to the internal using an 11-blade as well as De Jesus scissors. We then removed the plaque in its entirety from the carotid bulb as well as the distal internal. Once we were satisfied, we removed all the plaque in its entirety and applied standard 6-0 bovine pericardial patch using 2 running 6-0 Roscoe sutures. We allowed for backbleeding through all 3 major vessels and then completed anastomosis, removed the clamp from the external, clip from the superior thyroid, as well as the clamp from the common. We PATIENT'S NAME: AZAEL ZAMBRANO [facility] AGE: 86 Y [address] ROOM: [id number] [place] [address] LOCATION: [facility] ADMIT DATE: 04/20/2017 OR/Procedure Report DISCHARGE DATE: FAMILY PHYSICIAN: SARAH MARTINEZ ATTENDING PHYSICIAN: FLEX ENCARNACION waited 10 heartbeats and removed the clamp from the internal. Any bleeding sites were repaired with 6-0 Prolene. Thrombin was used locally in the wound. Once hemostasis was achieved, we packed the wound with gauze and then covered it with a sterile bandage. The patient was then proceeded on to CABG surgery. Dr. Martinez will dictate that portion of the surgery. MD LAKISHA BOCANEGRA/holly /[id number] d: 04/26/17 1805 t: 04/29/17 0959, OPERATIVE SUMMARY
--- NOTE | ~2017-04-20 | ECHO ---
Transthoracic Echocardiography Report (TTE) Demographics Patient Name AZAEL ZAMBRANO Date of Study 04/20/2017 Patient Number [id number] Visit Number [id number] Date of 1930 Room Number G6325 Gender Male Number Age 86 year(s) Referring Matilda Morris General Manager In Training Shayy Fernández, Physician RT,RVT,RDCS Physician Interpreting Mason Ashraf MD Med Spa Manager Physician Supervising Ordering Matilda Morris APRN MD/MLP Physician Nurse Stress Joss House Keeper Conclusions Summary The estimated left ventricular ejection fraction is 45-50%. [place] appears hypokinetic. The left atrium is mildly dilated by LA volume index measurement. Moderate concentric left ventricular hypertrophy. Dilated IVC with poor inspiratory collapse consistent with elevated RA pressure. There is severe pulmonary hypertension. The pulmonary pressure (RVSP) is 64 mmHg. Procedure Type of Study TTE procedure:2D Echocardiogram, M-Mode, Doppler , Color Doppler. Procedure Date Date: 04/20/2017 Start: 12:56 PM Study Location: Inpatient Portable Technical Quality: Adequate visualization Indications:Chest pain. Appropriate Use Criteria: 9 Patient Status: STAT HR: 69 bpm BP: 120/60 mmHg M-Mode/2D Measurements LV Diastolic Dimension: 5.55 cm LV Systolic Dimension: 4.39 cm LV Septum Diastolic: 1.48 cm LV Septum Systolic: 3 cm LV PW Diastolic: 1.34 cm LV PW Systolic: 2.62 cm Cardiac Output: 3.25 l/min AO Root Dimension: 3.4 cm RV Diastolic Dimension: 2.44 cm LA Dimension: 3.3 cm EF Estimated: 45 % LA volume: 80 ml LVOT: 2 cm LVOT VTI: 15 cm LV Stroke volume: 47.1 ml Doppler Measurements AV Peak Velocity: 1.09 m/s MV Peak E-Wave: 1.22 m/s AV Peak Gradient: 4.75 mmHg MV Peak A-Wave: 0.94 m/s AV Mean Gradient: 3 mmHg MV E/A Ratio: 1.29 LVOT Peak Velocity: 0.65 m/s MV P1/2t: 56 msec TR Gradient:46.79 mmHg PV Peak Velocity: 0.86 m/s Estimated RAP:10 mmHg PV Peak Gradient: 2.98 mmHg Estimated RVSP: 57 mmHg Estimated PASP: 56.79 mmHg E' Septal Velocity: 0.03 m/s A' Septal Velocity: 0.06 m/s MV E/E' Ratio: 37.4 Findings Left Ventricle Moderate concentric left ventricular hypertrophy. Diastolic assessment reveals Grade II pseudonormal diastolic function . Right Ventricle Normal right ventricle structure and function. Left Atrium The left atrium is mildly dilated by LA volume index measurement. Right Atrium Dilated IVC with poor inspiratory collapse consistent with elevated RA pressure. Mitral Valve Normal mitral valve structure and function. Aortic Valve Normal aortic valve structure and function. Tricuspid Valve There is severe pulmonary hypertension. The pulmonary pressure (RVSP) is 64 mmHg. Pulmonic Valve Normal pulmonic valve structure and function. Pericardial Effusion No evidence of pericardial effusion. Epicardial fat pad noted. Miscellaneous Visualized portions of the aortic root and ascending aorta appear normal in size. Pleural Effusion No evidence of pleural effusion. Signature dtt: ABBIE WILLIS dtd: 04/20/17 1256 Physician Self Edit
--- NOTE | ~2017-04-20 | HP ---
PATIENT'S NAME: AZAEL WANG [facility] AGE: 86 Y [address] ROOM: [id number] [place], [place] [address] LOCATION: GPCU ADMIT DATE: 04/20/2017 History & Physical DISCHARGE DATE: FAMILY PHYSICIAN: Darlin Mclaughlin MD ATTENDING PHYSICIAN: FLEX ENCARNACION DATE OF SERVICE: 04/20/2017 CHIEF COMPLAINT: Dyspnea with unstable angina. HISTORY OF PRESENT ILLNESS: Mr. Wang is a morbidly obese, elderly male, who presented to the emergency department via the [facility] yesterday evening of 04/19/2017. He is a gentleman with known coronary artery disease, who has had sedentary lifestyle since retiring and has been in his usual state of health until yesterday morning when he had cystoscopy performed at [place] for significant urinary symptoms of incontinence, UTI, and polyuria. During the procedure, he was found to have obstruction of the bladder neck. He was discharged to home following the procedure. He reports that he was sitting at [facility] when he experienced some shortness of breath while having a grilled cheese sandwich. He ended up eating half of a sandwich with some potato chips left there because he was having some chills and feeling shaky, but once he got outside in the warm, he felt fine and went home. The patient went home and tried to take a nap in his easy chair where he says he sleeps most of the time. However, he was noted to be rather uncomfortable by his significant other. He reports there was pain straight across his entire right and left chest. He describes only as "around aching" and rates at 5/10 associated with persistent dyspnea, which he had developed at the diner. In addition, he reports that his oxygen, which was usually supplemented at 2 L by nasal cannula at home, was resulting in oxygen saturation of only 88% to 89%. Around 8:00 p.m., the EMS was called and as above, he presented to [place] and was found to have a mildly elevated troponin. He was started on heparin drip and observed overnight, during which time his troponin was back to 24. Dr. Mclaughlin of [place] has been in contact with Dr. Parker last night and spoke to Dr. Santana this morning. She agreed to accept the patient in transfer for further evaluation and management. He appears much more comfortable now, although he still has some aching in his chest and in consideration of significant troponin, he will be taken to cardiac mason tender restoration labor promptly. PATIENT'S NAME: AZAEL WANG [facility] AGE: 86 Y [address] ROOM: [place] [address] [facility] ADMIT DATE: 04/20/2017 History & Physical DISCHARGE DATE: FAMILY PHYSICIAN: Darlin Mclaughlin MD ATTENDING PHYSICIAN: FLEX ENCARNACION PAST MEDICAL HISTORY: 1. Morbid obesity. 2. Chronic kidney disease. 3. BPH. 4. Dyslipidemia. 5. CHF. 6. Hypertension. 7. Coronary artery disease. 8. Diabetes mellitus type 2. 9. Hypothyroidism. 10. Obstructive sleep apnea, untreated. 11. Paroxysmal atrial fibrillation, on chronic anticoagulation therapy. PAST SURGICAL HISTORY: Resection of the patella on the right in 1953 when he was in [place]. ALLERGIES: SULFA, PENICILLIN, AND CIPRO. MEDICATIONS: 1. Aspirin 81 daily. 2. Symbicort one puff daily. 3. Nitrofurantoin 100 mg p.o. b.i.d. 4. Atorvastatin 20 mg daily. 5. Pioglitazone 15 mg daily. 6. Levothyroxine 75 mcg daily. 7. Lasix 20 mg daily. 8. Sotalol 40 mg b.i.d. 9. Eliquis 2.5 mg b.i.d. 10. Glipizide 10 mg b.i.d. 11. Losartan 25 mg daily. 12. Flomax 0.4 mg daily. 13. Fosamax 75 mg weekly. 14. He may also be on vitamin D weekly. SOCIAL HISTORY: Mr. Wang admits to being and lives alone. 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 He has quite a heavy smoking history for a while. He smoked 3 to 4 packs a day for over 30 years and he quit 40 years ago. He has rare beer these days and admits to no other illicit drug use. FAMILY HISTORY: Positive for mother at 72 of unknown causes 30 days following surgery on PATIENT'S NAME: AZAEL WANG [facility] AGE: 86 Y [address] ROOM: [id number] [place], [place] [address] [facility] ADMIT DATE: 04/20/2017 History & Physical DISCHARGE DATE: FAMILY PHYSICIAN: Darlin Mclaughlin MD ATTENDING PHYSICIAN: FLEX ENCARNACION her liver. His father at age 68 of an OH. His sister following [place]. No other siblings. REVIEW OF SYSTEMS: GENERAL: He denies weight loss, but has gained 25 to 30 pounds in the past 5 years since returning from [place] given his increased intake and decreased exercise. His appetite is good, but his exercise tolerance is extremely limited. He reports dyspnea on exertion after about 100 feet. He had a low- grade fever yesterday to 100. HEENT: Negative for headache, blurred vision, or dizziness. He does have cataracts. He does not wear glasses. He reports sinus problems with nasal drainage and stuffiness and clear secretions, which have increased since the use of Symbicort. He denies odynophagia, dysphagia, or pharyngitis. PULMONARY: He does get short of breath with orthopnea requiring sleeping in easy chair. He has "some" cough, clear sputum production and minimal wheezing. CARDIOVASCULAR: He has aching chest pain, which is still a slight ache. He has some edema problems. GASTROINTESTINAL: Negative for GERD, nausea, vomiting, diarrhea, or constipation, but he does have some bloating. He denies hematemesis, hematochezia, or melena. His last bowel movement was yesterday. UROLOGIC: Positive for the obstructed bladder neck and multiple symptoms of UTI, etc. as in the HPI. NEUROLOGIC: He denies weakness, numbness, confusion, dysarthria, syncope, or near syncope. He essentially has okay balance except for fall last year and he said he fell to his knees with no specific injury 3 weeks ago. HEMATOLOGIC: He denies history of anemia or abnormal bleeding, but he does have some mild bruising secondary to aspirin and Eliquis. MUSCULOSKELETAL: Relatively negative. He denies any painful joints except for he had to be reminded that he was taking Fosamax for osteoporosis and when he remembered that he has what he thinks is a compression fracture in the thoracic spine. ENDOCRINE: Positive for his diabetes. No symptoms of hot flashes or night sweats. DERMATOLOGIC: He does have redness on the lower legs, right greater than left. His skin is very fair and freckles. He denies any history of skin cancer. He has no pruritus or skin allergies. He does have diffuse onychomycosis on both feet. PSYCHIATRIC: He does not have any underlying psychiatric disorders. He denies depression, anxiety, or sleep disturbances, but says he was feeling well until last night when he had to go to the hospital. PHYSICAL EXAMINATION: GENERAL: Morbidly obese, elderly gentleman, who is awake, alert, and oriented to person, place, and time, answering questions without PATIENT'S NAME: AZAEL WANG [facility] AGE: 86 Y [address] ROOM: [address] [address] [facility] ADMIT DATE: 04/20/2017 History & Physical DISCHARGE DATE: FAMILY PHYSICIAN: Darlin Mclaughlin MD ATTENDING PHYSICIAN: FLEX ENCARNACION difficulty with normal speech. HEENT: Normocephalic, atraumatic. His pupils are relatively equal and equally reactive. Sclerae minimally injected. The palpebral conjunctivae are pink without exudate. Slight tearing on the right. The oropharynx is clear. The mucous membranes are slightly dry. His natural dentition is in fair repair. NECK: Supple without lymphadenopathy or thyromegaly. There is no supraclavicular lymphadenopathy. I do not appreciate significant JVD, although he does have redundant adipose in the neck. LUNGS: Clear to auscultation and percussion bilaterally. There is no CVA or vertebral tenderness. CARDIOVASCULAR: Regular rate and rhythm. No murmur, rub, or gallop. ABDOMEN: Obese, full, soft, nontender, and nondistended without appreciable mass. : The patient is uncircumcised. There is a Song catheter in place and during my exam, bright red blood begins to emanate from the Song catheter whereas urine in the bag had been dark juan. EXTREMITIES: Trace to 1+ pretibial edema with mild erythema. No significant warmth over this dry pretibial skin. Dorsalis pedis pulses are about 1+ and equal bilaterally. Strength in upper and lower extremities is about equal and fairly normal for a gentleman of this age. NEUROLOGIC: He follows commands well. He is nonfocal. LABORATORY DATA: From the [facility], the white blood cell count 10.38, hemoglobin 12.3, hematocrit 38.6, platelets 181,000. Glucose 104, BUN 33, creatinine 2.05, serum protein 6.5, albumin 3.2, calcium 8.8, total bilirubin 0.6, AST 16, AST 13, sodium 141, potassium 3.7, chloride 108, CO2 of 20.6, alkaline phosphatase 71. Initial troponin I was 0.3. I was given a verbal report of a maximum troponin of 24. The EKG, which was done on admission, is not available to me at this time. [facility] at 4:00 a.m. today shows sinus rhythm with a MI interval of 271 and there is no acute ST-elevation, no significant depression. There are nonspecific ST changes, especially in I, aVL in the lateral leads. There are no current radiographic images report. ASSESSMENT AND PLAN: 1. Uqw-MX-[id number] myocardial infarction in a patient with known coronary artery disease. The patient has been seen by Dr. Santana and Cardiology is following. The plan is to repeat his troponin now and continue nitroglycerin drip and heparin drip if we are able to resume this now that he has had dsuty hemorrhaging from his Song. 2. Urologic: He has had bladder neck obstruction and was seen by an outside urologist. I am going to have to call our urologist and see if he is PATIENT'S NAME: AZAEL WANG [facility] AGE: 86 Y [address] ROOM: [place] [address] [facility] ADMIT DATE: 04/20/2017 History & Physical DISCHARGE DATE: FAMILY PHYSICIAN: Darlin Mclaughlin MD ATTENDING PHYSICIAN: FLEX ENCARNACION willing to consult and see him while he is here. We are waiting for his current PTT to assess if the bleeding is related to abnormal PTT or just trauma with catheterization at the [facility] facility. This catheter was present here on admission. Dr. Brewster is buckle and button maker today and I will call him promptly. 3. Diabetes mellitus. We will hold his oral hypoglycemics and treat him with a sliding scale. 4. History of congestive heart failure. We will continue his oral Lasix for now. 5. Hypothyroidism. We will continue levothyroxine 75 mcg daily. 6. Hypertension. We will continue his ARB. 7. Paroxysmal atrial fibrillation. We will continue sotalol at a daily dose considering he has a prolonged AV block at this time with MI interval of greater than 270. 8. Urinary tract infection. We will continue nitrofurantoin for now. 9. Disposition. We will follow him closely from a cardiac standpoint and discharge him to home when he is stable. Thank you very much for your assistance with this dictation, which was finally done. I appreciate your patience. FLEX ENCARNACION MD LM/holly /[id number] D: [id number] T: [id number] HISTORY & PHYSICAL
--- NOTE | ~2017-04-20 | ENPV ---
Carotid Duplex Study Demographics Patient Name AZAEL ZAMBRANO Date of Study 04/22/2017 Patient Number [id number] Gender Male Date of 1930 Age 86 Visit Number [id number] Height 66 Accession Number [id number] Weight 261.01 Referring Michelle Pepe DO Interpreting Fortino Leon MD Physician Physician Physician Ordering Physician Michelle Pepe Window Trimmer DO Loan Service Officer Mona Santamaria [facility] Conclusions Summary The right internal carotid artery has severe, 60-79%, plaque and stenosis. The left internal carotid artery has severe, 60-79%, plaque and stenosis. The right vertebral artery was not visualized . The left vertebral artery was not visualized . Severe calcification on the right advise CTA Procedure Type of Study: Cerebral:Carotid, Carotid Doppler Bilateral. Indications for Study:Pre-op CABG. Appropriate Use Criteria:9 Allergies - Sulfa. - Penicillin. - Antibiotics:(Cipro). Blood Pressure:Right arm 102/60 mmHg.Left arm 104/63 mmHg. Patient Status:Routine. Study Location:Inpatient Portable. Technical Quality:Limited visualization due to body habitus. Risk Factors - The patient's risk factor(s) include: diabetes mellitus, dyslipidemia, arterial hypertension and prior DC . - The patient has a former tobacco history. - The patient's last creatinine was 1.8 mg/dl. Velocities are measured in cm/s ; Diameters are measured in cm Carotid Right Measurements Carotid Left Measurements + +--------+--------+ + + + +--------+ --------+ + + !Location !PSV !EDV !Angle !%Stenosis ! !Location !PSV ! EDV !Angle !%Stenosis ! + +--------+--------+ + + + +--------+ --------+ + + !Prox CCA !128 !28 !60 ! ! !Prox CCA !180 ! 28 !60 ! ! + +--------+--------+ + + + +--------+ --------+ + + !Dist CCA !117 !30 !60 ! ! !Dist CCA !129 ! 25 !60 ! ! + +--------+--------+ + + + +--------+ --------+ + + !Prox ICA !116 !17 !60 ! ! !Prox ICA !169 ! 6 !60 ! ! + +--------+--------+ + + + +--------+ --------+ + + !Dist ICA !233 !52 !60 ! ! !Dist ICA !165 ! 40 !60 ! ! + +--------+--------+ + + + +--------+ --------+ + + !Prox ECA !163 !9 !60 ! ! !Prox ECA !158 ! 4 !60 ! ! + +--------+--------+ + + + +--------+ --------+ + + !Subclavian !168 !11 !60 ! ! !Subclavian !169 ! 6 ! ! ! + +--------+--------+ + + + +--------+ --------+ + + - The left vertebral arter y was not visualized. - Add'l Measurements:Subclavian PRV 168 cm/sICAPSV/CCAPSV 1.82.ICAEDV/CCAEDV 1.81. - Add'l Measurements:Subcl viv PRV 169 cm/sICAPSV/CCAPSV 0.94.ICAEDV/CCAEDV 1.44. Impressions Right Impression There is a moderate degree of smooth heterogeneous plaque in the right internal carotid artery .The right vertebral artery was not visualized . Left Impression There is a moderate degree of smooth homogeneous plaque in the left internal carotid artery .The left vertebral artery was not visualized . Signature dtt: JORGE DOBSON dtd: 04/22/17 1120 Physician Self Edit
--- NOTE | ~2017-04-20 | CON ---
PATIENT'S NAME: AZAEL ZAMBRANO [facility] AGE: 86 Y [address] ROOM: [address] [address] LOCATION: [facility] ADMIT DATE: 04/20/2017 Consultation DISCHARGE DATE: FAMILY PHYSICIAN: Darlin Mclaughlin MD ATTENDING PHYSICIAN: FLEX ENCARNACION DATE OF CONSULTATION: 04/20/2017 REFERRING PHYSICIAN: ABBIE WILLIS MD CHIEF COMPLAINT: Gross hematuria. HISTORY OF PRESENT ILLNESS: The patient is a pleasant 86-year-old male with difficulties with gross hematuria. He was transferred in from [place] for unstable angina with elevated troponins. Apparently, he has a history of recurrent urinary tract infection. He states that yesterday he was in to see 1 of the urologists in [place] who had attempted a cystoscopy in clinic. From what it sounds like, they were unable to get into his bladder, secondary to some scar tissue. The patient states that they had offered to bring him back the very next day to perform cystoscopy with possible dilation under anesthesia and the patient declined as he was scheduled to go to [place] this coming Monday. He then had presented to [place] with unstable angina and was transferred down here to [facility]. Apparently, he started noticing some blood in his urine yesterday. He does take Eliquis, but had been off of that for a period of time, but restarted taking it yesterday. In [place], they were finally able to get a 16-Burkinan Song catheter into his bladder, which has been draining grossly bloody urine since placement. The patient denies any personal history or family history of prostate cancer. He describes undergoing a procedure by Dr. David approximately 4 years ago what the patient describes as a possible transurethral resection of prostate or laser photovaporization of prostate. The patient has no further questions or concerns at this time. PAST MEDICAL HISTORY: 1. BPH. 2. Recurrent urinary tract infection. 3. Coronary artery disease. 4. Diabetes mellitus type 2. 5. Hypertension. 6. Hyperlipidemia. 7. Obstructive sleep apnea. 8. Atrial fibrillation. 9. Chronic anticoagulation. PATIENT'S NAME: AZAEL ZAMBRANO [facility] AGE: 86 Y [address] ROOM: [address] [address] LOCATION: GPCU ADMIT DATE: 04/20/2017 Consultation DISCHARGE DATE: FAMILY PHYSICIAN: Darlin Mclaughlin MD ATTENDING PHYSICIAN: FLEX ENCARNACION FAMILY HISTORY: The patient denies any known family history of genitourinary abnormalities or malignancy. SOCIAL HISTORY: Noncontributory. ALLERGIES: TO PENICILLIN, SULFA, AND CIPRO. MEDICATIONS: See hospitalization medication reconciliation. REVIEW OF SYSTEMS: A full 10+ point review of systems was performed with pertinent positive and negative findings included in history of present illness. All other systems reviewed and are otherwise negative. PHYSICAL EXAMINATION: CONSTITUTIONAL: No acute distress, hemodynamically stable. HEENT: Extraocular muscles intact. Mucous membranes moist. No drainage per ears or nose. CARDIAC: Good peripheral perfusion. RESPIRATORY: No audible wheezing or stridor. Respirations do not appear labored. ABDOMEN: Soft, nontender, nondistended. GENITOURINARY: Normal phallus with indwelling Song catheter draining grossly bloody urine. The catheter appears to be a 16-Burkinan indwelling catheter. PSYCHIATRIC: Normal affect and answers questions appropriately. HEMATOLOGIC: Gross blood within the catheter tubing. NEUROLOGIC: No focal deficits noted. MUSCULOSKELETAL: Moves all extremities. IMPRESSION: Gross hematuria. PLAN: I had a long discussion today with the patient and his manager hris regarding my findings. I suspect that he has either a urethral stricture or bladder neck contracture based on the findings yesterday during his cystoscopy in [place]. As the patient is needing cardiac intervention with likely ultimate anticoagulation, I suspect that he is going to continue to have difficulties and likely clot off that 16-Burkinan catheter. He will need a larger 24-Burkinan 3-way Song catheter placed with likely direct vision internal urethrotomy or urethral dilation to get the larger catheter in place. PATIENT'S NAME: AZAEL ZAMBRANO [facility] AGE: 86 Y [address] ROOM: [address] [place] [address] LOCATION: GPCU ADMIT DATE: 04/20/2017 Consultation DISCHARGE DATE: FAMILY PHYSICIAN: Darlin Mclaughlin MD ATTENDING PHYSICIAN: FLEX ENCARNACION He also likely will need a cystoscopy with clot evacuation and possible fulguration. I did explain to the patient the risks, benefits, indications, and alternatives and he is wishing to proceed and is consenting freely. We will coordinate with Cardiology regarding their plan and to see if they are able to bridge him and possible just balloon dilate until we get him more situated from a urologic standpoint. MD ANDI DORADO/holly /[id number] d: 04/21/17 0237 t: 04/29/17 1029, CONSULTATION REPORT
--- NOTE | 2017-04-20 12:11 | NUR ---
PT is 86 y/o male admit for non-stemi for hospitalist. to consult for cardiology. Pt allergic to PCN,cipro,sulfa. Red and yellow bracelets on. Pt sensitive to adhesive. Has red area where his nitro patch was removed. Came via ambulance from [facility]. Pt had outpatient cysto at [facility] yesterday where he said the urologist had a difficult time doing his scope due to scar tissue. Pt arrived with a catheter present today and had yellow urine present but now has dusty blood present in tubing and from opening of penis. Pt alert and oriented x3. Pt had a cysto yesterday because of leaking/dribbling/incontinence. Hx stents,Mi,CAD,htn,CHF,edema,afib,poss sleep apnea,hyperlipids,chronic kidney disease,hypothyroid,DM type 2. Resides at home alone. Pt wishes to be DNR. Pt states he went to local diner to eat after arriving home and started chilling, so he went outside where it was warm. He then went to his significant other's house and started having pain across his chest with SOB. He put his O2 on but couldn't get his sats up. He's also c/o left neck and shoulder pain/stiffness.
[2017-04-20] MEDS ORDERED: VITAMIN D250000 UNIT PO (12:19)
[2017-04-20] MEDS ORDERED: ALENDRONATE SOD70 MG PO (12:20)
[2017-04-20] MEDS ORDERED: ELIQUIS2.5 MG PO (12:20)
[2017-04-20] MEDS ORDERED: NITROFURANTOIN100 MG PO (12:20)
[2017-04-20] MEDS ORDERED: LASIX40 MG PO (12:21)
[2017-04-20] MEDS ORDERED: ACTOS 15 MG15 MG PO (12:21)
[2017-04-20] MEDS ORDERED: FLOMAX0.4 MG PO (12:22)
[2017-04-20] MEDS ORDERED: ASPIRIN LO-DOSE81 MG PO (12:22)
[2017-04-20] MEDS ORDERED: VITAMIN D-40400 UNIT PO (12:22)
[2017-04-20] MEDS ORDERED: LIPITOR20 M1 PO (12:22)
[2017-04-20] MEDS ORDERED: GLUCOTROL XL10 MG PO (12:23)
[2017-04-20] MEDS ORDERED: COZAAR25 MG PO (12:24)
[2017-04-20] MEDS ORDERED: NITROGLYCERIN0.6 MG TRANS (12:24)
[2017-04-20] MEDS ORDERED: LEVOTHROID (S100 MCG PO (12:24)
[2017-04-20] MEDS ORDERED: SYMBICORT 16010.2 GM INH (12:25)
[2017-04-20] MEDS ORDERED: SOTALOL80 MG PO (12:25)
[2017-04-20 12:53] LABS: BASOPHIL # 0.1 K/uL (0.0-0.2); BASOPHIL % 0.3 %; EOSINOPHIL # 0.2 K/uL (0.0-0.5); EOSINOPHIL % 0.7 %; HEMATOCRIT 37.9 % (33.0-50.0); HEMOGLOBIN 12.3 g/dL (11.0-16.0); IMMATURE GRANULOCYTE # 0.1 K/uL (0.0-0.3); IMMATURE GRANULOCYTE % 0.5 %; LYMPHOCYTE % 4.8 %; MCH 30.6 pg (27.0-34.0); MCHC 32.5 gm/dL (32.0-36.5); MCV 94.3 fl (83.0-98.0); MONOCYTE # 1.2 K/uL (0.0-1.0); MONOCYTE % 5.4 %; MPV 9.7 fl (9.4-12.4); NEUTROPHIL % 88.3 %; NRBC % 0 /100WBC (0-0.00); PLATELET COUNT 164 K/uL (150-450); RBC 4.02 M/uL (3.50-5.50); RDW-CV 14.9 % (11.9-14.6); WBC 21.4 K/uL (4.0-11.0)
[2017-04-20 13:04] LABS: INR - (THERAPEUTIC) 1.04 (0.92-1.07); PROTIME 10.9 SECONDS (9.8-11.4)
[2017-04-20 15:25] LABS: BILIRUBIN URINE NEGATIVE (NEGATIVE); BLOOD URINE 150 /UL (NEGATIVE); COLOR URINE RED (YELLOW); GLUCOSE URINE NEGATIVE (NEGATIVE); KETONE URINE NEGATIVE (NEGATIVE); LEUKOCYTES URINE NEGATIVE /UL (NEGATIVE); NITRITE URINE NEGATIVE (NEGATIVE); PROTEIN URINE 500 mg/dL (NEGATIVE); TURBIDITY URINE 4+ (CLEAR); UROBILINOGEN URINE NORMAL (NORMAL)
[2017-04-20 15:50] LABS: BACTERIA URINE NEGATIVE (NEGATIVE)
[2017-04-20 15:52] LABS: EPITHELIAL URINE 0-2 #/HPF (NEGATIVE); RBC URINE 50-100 #/HPF (NEGATIVE); WBC URINE 0-2 #/HPF (NEGATIVE)
[2017-04-20 16:23] LABS: ALBUMIN 3.1 gm/dL (3.5-5.0); ANION GAP 13.9 (10.0-19.0); CALCIUM 8.5 mg/dL (8.5-10.5); CREATININE 2.1 mg/dL (0.6-1.3); PHOSPHORUS 2.5 mg/dL (2.5-4.9); POTASSIUM 3.9 mMol/L (3.7-5.1)
--- NOTE | 2017-04-20 17:45 | NUR ---
Significant Event: A/O X 3. COLOR PALE/PALLOR. SKIN COOL. AFEBRILE. HR SR IN 70'S. HAS HAD SHORT RUNS ARRHYTHMIA'S. DR. DOMINGO AWARE. SBP 125-131. ON NITRO GTT AT 5 MICS, HEPARIN AT 1000 UNITS/HR, NS AT 75 ML/HR. MCPHERSON PATENT, DRAINS BLOODY URINE WITH THREADS. DR. ROMAN AWARE AND WILL SEE PT. MAY START CBI. Follow up: HEART CATH IN A.M. UNLESS STATUS CHANGES.
[2017-04-21 04:09] LABS: BASOPHIL # 0.1 K/uL (0.0-0.2); BASOPHIL % 0.3 %; EOSINOPHIL # 0.4 K/uL (0.0-0.5); EOSINOPHIL % 2.6 %; HEMATOCRIT 32.2 % (33.0-50.0); HEMOGLOBIN 10.4 g/dL (11.0-16.0); IMMATURE GRANULOCYTE # 0.1 K/uL (0.0-0.3); IMMATURE GRANULOCYTE % 0.5 %; LYMPHOCYTE # 1.4 K/uL (0.8-4.0); LYMPHOCYTE % 9.1 %; MCH 30.2 pg (27.0-34.0); MCHC 32.3 gm/dL (32.0-36.5); MCV 93.6 fl (83.0-98.0); MONOCYTE % 6.5 %; MPV 10.1 fl (9.4-12.4); NEUTROPHIL # (ANC) 12.6 K/uL (1.4-9.0); NRBC % 0 /100WBC (0-0.00); PLATELET COUNT 151 K/uL (150-450); RBC 3.44 M/uL (3.50-5.50); WBC 15.6 K/uL (4.0-11.0)
[2017-04-21 04:30] LABS: ALBUMIN 2.5 gm/dL (3.5-5.0); ANION GAP 11.7 (10.0-19.0); CREATININE 1.8 mg/dL (0.6-1.3); POTASSIUM 3.7 mMol/L (3.7-5.1); TOTAL BILIRUBIN 0.5 mg/dL (0.0-1.5); TOTAL PROTEIN 5.6 g/dL (6.0-8.4)
[2017-04-21 04:44] LABS: MAGNESIUM 1.9 mg/dL (1.8-2.6)
--- NOTE | 2017-04-21 05:01 | NUR ---
A/O. HR 60-70s. 5 BEAT VTACH ASYMTOMATIC. DENIES CHEST PAIN WITH 5MCG/MIN OF NITRO. SBP 120-150s. AFEBRILE. 3L O2 NC. 75ML/HR OF NS RUNNING. BRIGHT BURGESS RED URINE FROM [place]. IRRIGATED PRN x3 TOLERATED WELL. BLOODY DRAINAGE FROM URETHRA. NO BM. HEPARIN D/C AND NPO SINCE MIDNIGHT. CYSTOSCOPY TODAY. THEN HEART CATH TODAY FOR CHEST PAIN AND ELEVATED TN-I.
--- NOTE | 2017-04-21 11:30 | NUR ---
Introduced self and role of care management to patient. He lives alone in [place]. Says he does not have family but has good friends and neighbors. He has a cleaning lady that comes twice a month. He says he eats most of his meals at [employer] and spends a lot of his day there. He says he has a lady friend who lives in [place] and that they have fun together. He says he was suppose to be going on a trip to [place] but had to delay it because of not feeling well. He hopes to be able to go home, but will see how he does once he is able to be up. Is to have a heart cath later today. Will follow.
[2017-04-21 16:01] LABS: BASOPHIL # 0.1 K/uL (0.0-0.2); BASOPHIL % 0.3 %; EOSINOPHIL # 0.4 K/uL (0.0-0.5); EOSINOPHIL % 2.4 %; HEMATOCRIT 33.5 % (33.0-50.0); HEMOGLOBIN 10.9 g/dL (11.0-16.0); IMMATURE GRANULOCYTE # 0.1 K/uL (0.0-0.3); IMMATURE GRANULOCYTE % 0.6 %; LYMPHOCYTE # 1.4 K/uL (0.8-4.0); LYMPHOCYTE % 9.4 %; MCH 30.7 pg (27.0-34.0); MCHC 32.5 gm/dL (32.0-36.5); MCV 94.4 fl (83.0-98.0); MONOCYTE % 6.6 %; MPV 9.8 fl (9.4-12.4); NEUTROPHIL # (ANC) 11.6 K/uL (1.4-9.0); NEUTROPHIL % 80.7 %; NRBC % 0 /100WBC (0-0.00); PLATELET COUNT 162 K/uL (150-450); RBC 3.55 M/uL (3.50-5.50); RDW-CV 14.8 % (11.9-14.6); WBC 14.4 K/uL (4.0-11.0)
[2017-04-21 16:29] LABS: INR - (THERAPEUTIC) 1.33 (0.92-1.07)
--- NOTE | 2017-04-21 17:15 | NUR ---
Significant Event: Patient A/O x 3. Bedrest. VSS on 4L. Order to wean to keep O2 saturations >90%. Wheezing this morning and prior to heart cath so given 40 mg IV lasix and a duoneb. RT to due RSS and treat. R)radial heart cath today with some ballooning to circumflex artery. Dr. Martinez consulted for a CABG, but patient wants to wait until tomorrow to decide what he wants to do. CBI started after cysto this A.M. and no problems throughout the day. 1100 ml UOP. NOT TO REMOVE EASON. Patient is to go home with the eason. ACHS accu checks. L)upper midline with NS infusing at TKO and Nitro at 5 mcg/min (to run continuously), and R)hand PIV with heparin infusing at 1000 ml/h. Order to use midline for blood draws. Next PTTHP at 2200. Follow up: Continue as per plan of care. Decide if patient wants to have CABG tomorrow. Continue with CBI
[2017-04-22 04:14] LABS: ALBUMIN 2.1 gm/dL (3.5-5.0); ANION GAP 11.5 (10.0-19.0); CALCIUM 7.5 mg/dL (8.5-10.5); CREATININE 1.8 mg/dL (0.6-1.3); POTASSIUM 3.5 mMol/L (3.7-5.1); TOTAL BILIRUBIN 0.6 mg/dL (0.0-1.5); TOTAL PROTEIN 5.3 g/dL (6.0-8.4)
--- NOTE | 2017-04-22 04:47 | NUR ---
A/O. HR 60-70s. SBP 100-120s. NITRO ON AT 5MCG/MIN. HEPARIN AT 1100UNITS/HR. PTTHP PENDING. NS AT TKO. OK TO DRAW LABS FROM MIDLINE. R) WRIST SOFT NONTENDER. 4L O2 NC. BEDREST REPOSITION 2QHR. DENIES PAIN. CBI RUNNING SLOW. YELLOW WITH SEDIMENT IN URINE. 1 SMALL INCONTINET BM. PLAN FOR POSSIBLE CABG MONDAY. 1700 UOP.
--- NOTE | 2017-04-22 16:03 | NUR ---
Significant Event: Patient A/O x 3 and up with 1-2 assist. Has been on bedrest until today and tolerated transferring well. Dyspnea on exertion noted. VSS. O2 titrated anywhere from 2-4L, now at 2L. Patient typically only wears 2L at night per home dose. Faint expiratory wheezing heard in lung bases. 2 view chest xray done today, showing pleural effusion. Given 40 mg IV lasix. CBI stopped at approximately 1245, and order to restart as needed. 950 ml out of eason. NOT TO REMOVE EASON WITHOUT AN ORDER FROM UROLOGY! R)hand PIV with heparin infusing at 1300 units/h with next PTTHP at 2014. L)upper midline with NS infusing at 5 ml/h and Nitro infusing at 5 mcg/min. Using midline for blood draws. PT/OT/cardiac rehab consulted. ACHS accu checks. Denies need for pain medication throughout the day. Follow up: Continue as per plan of care. Plan for CABG on Monday.
[2017-04-23 03:29] LABS: BASOPHIL # 0.1 K/uL (0.0-0.2); BASOPHIL % 0.7 %; EOSINOPHIL # 0.3 K/uL (0.0-0.5); EOSINOPHIL % 3.4 %; HEMATOCRIT 29.3 % (33.0-50.0); HEMOGLOBIN 9.6 g/dL (11.0-16.0); IMMATURE GRANULOCYTE # 0.1 K/uL (0.0-0.3); LYMPHOCYTE # 2.6 K/uL (0.8-4.0); LYMPHOCYTE % 26.6 %; MCHC 32.8 gm/dL (32.0-36.5); MCV 91.6 fl (83.0-98.0); MONOCYTE # 0.7 K/uL (0.0-1.0); MONOCYTE % 7.3 %; MPV 10.1 fl (9.4-12.4); NRBC % 0 /100WBC (0-0.00); PLATELET COUNT 135 K/uL (150-450); RDW-CV 14.8 % (11.9-14.6); WBC 9.8 K/uL (4.0-11.0)
[2017-04-23 04:16] LABS: ALBUMIN 2.4 gm/dL (3.5-5.0); ANION GAP 11.6 (10.0-19.0); CREATININE 1.8 mg/dL (0.6-1.3); PHOSPHORUS 3.3 mg/dL (2.5-4.9); POTASSIUM 3.6 mMol/L (3.7-5.1)
--- NOTE | 2017-04-23 04:46 | NUR ---
Patient A/O. VSS. 3L of oxygen NC. Lung sounds are clear and diminished. Bowel sounds present. 2,100mL output through eason. Diabetic diet. Possible CABG on Monday. Glucose was 207 HS. 1-2 assist with ambulation. Left upper midline running nitro and right hand IV running heparin. Blood draws from Midline. ACHS accu checks. Denies pain. PTTHP check at 1000.
--- NOTE | 2017-04-23 17:21 | NUR ---
Significant Event: Patient A/O x 3. Up with 1A. VSS on 3L throughout the day. Wheezing heard this morning, but has improving througout the day. EASON. Given 1 dose of Lasix 40 mg PO. Started NS at 75 ml/h at 1230 for CTA scheduled at 1830. To change fluids to TKO again once procedure is over. Nitro shut off this morning and Imdur started. Heparin infusing at 1400 units throughout the day through R)hand PIV. Awaiting PTTHP result. Has been therapeutic 3x now. MARQUES PIV with NS infusing. Song with 950 ml UOP. 5 M walk test done. CABG permits signed. Planned to do it Monday now. Patient admits to "being down" today and sad that procedure was pushed back to Monday. Tearful at times, especially when talking to friends and family on the phone. ACHS accu checks. Denies pain throughout the day. Follow up: Continue as per plan of care. Call CTA results to Dr. Fortino delaney.
[2017-04-23 18:11] LABS: ANION GAP 12.3 (10.0-19.0); CALCIUM 8.1 mg/dL (8.5-10.5); POTASSIUM 4.3 mMol/L (3.7-5.1)
--- NOTE | 2017-04-24 04:43 | NUR ---
Patient A/Ox3. VSS on 3L NC. Up with one assist. Lungs clear/diminished. Bowel sounds present. IV Rt hand Heparin gtt 1400unit/hr, next PTTHP 0500. Midline to Rt upper arm. Song 1725ml out. CTA (-). CABG scheduled on monday.
[2017-04-24 07:46] LABS: BASOPHIL # 0.1 K/uL (0.0-0.2); BASOPHIL % 0.8 %; EOSINOPHIL # 0.3 K/uL (0.0-0.5); EOSINOPHIL % 3.1 %; HEMOGLOBIN 9.2 g/dL (11.0-16.0); IMMATURE GRANULOCYTE # 0.2 K/uL (0.0-0.3); IMMATURE GRANULOCYTE % 2.2 %; LYMPHOCYTE % 29.4 %; MCH 29.6 pg (27.0-34.0); MCHC 31.7 gm/dL (32.0-36.5); MCV 93.2 fl (83.0-98.0); MONOCYTE # 0.8 K/uL (0.0-1.0); MONOCYTE % 7.8 %; MPV 9.7 fl (9.4-12.4); NEUTROPHIL # (ANC) 5.8 K/uL (1.4-9.0); NEUTROPHIL % 56.7 %; NRBC % 0 /100WBC (0-0.00); RBC 3.11 M/uL (3.50-5.50); RDW-CV 14.6 % (11.9-14.6); WBC 10.2 K/uL (4.0-11.0)
[2017-04-24 07:47] LABS: PLATELET COUNT 180 K/uL (150-450)
[2017-04-24 08:03] LABS: ALBUMIN 2.4 gm/dL (3.5-5.0); CREATININE 1.8 mg/dL (0.6-1.3); PHOSPHORUS 2.6 mg/dL (2.5-4.9)
--- NOTE | 2017-04-24 11:17 | NUR ---
A-SCREENED D/T LOS CABG PLANNED FOR 04/26 HT: 66 IN. WT: 117.1 KG. IBW: 64 KG. BMI: 42.3 LABS: NA 142, K+ 4.0, GLU 138, BUN 32, BENDING PRESS OPERATOR 1.8, ALB 2.4, PREALB 11.0 MEDS: IMDUR, ZOFRAN, PRN BOWEL MEDS, VIT D, LIPITOR DIET RX: CONSISTENT CARB/LOW FAT. PO INTAKE HAS BEEN 75-100% SINCE ADMIT EST NUTR NEEDS: 9182-0605 KCALS (15-20 KCALS/KG) 125-160 GM PROTEIN (2.0-2.5 GM/KG) FLUID PER MD POST-OP D-NOT AT NUTRITION RISK AT THIS TIME; NO NUTRITION DX. I-CONTINUE W/CURRENT DIET RX M/E-GOAL: PO INTAKE >/=75% UNTIL CABG ON 04/26 1)F/U DIET RX, PO INTAKE POST CABG; ADD APPROPRIATE NUTRITION INTERVENTIONS IF NEEDED IN 3-5 DAYS 2)ASSIST NEEDED
--- NOTE | 2017-04-24 16:38 | NUR ---
Significant Event:Patient has been up in chair. Song leaked while patient up in chair this afternoon. Did have 1000 ml urine out after Albumin and Lasix that were given today. Started on carb count insulin. Heparin continues at 1400 units/hr. Looks like he is going to have a CEA on Monday. Remains on 3L O2. Encourage activity. Follow up:Needs daily weights.
[2017-04-25 04:15] LABS: HEMOGLOBIN 8.8 g/dL (11.0-16.0); MCH 30.3 pg (27.0-34.0); MCHC 32.6 gm/dL (32.0-36.5); MCV 93.1 fl (83.0-98.0); MPV 9.8 fl (9.4-12.4); RBC 2.9 M/uL (3.50-5.50); RDW-CV 14.6 % (11.9-14.6); WBC 9.5 K/uL (4.0-11.0)
--- NOTE | 2017-04-25 04:22 | NUR ---
A/Ox3. VSS on 3L NC. Ambulates one assist. Lung sounds clear/diminished. Bowel sounds present. IV right hand Heparin 1400Units/hr. Midline to right upper arm. Song 2,000mL out. CABG scheduled for monday. Carb count insulin and diabetic diet.
[2017-04-25 04:24] LABS: PROTIME 10.8 SECONDS (9.8-11.4)
[2017-04-25 04:25] LABS: INR - (THERAPEUTIC) 1.03 (0.92-1.07)
[2017-04-25 04:33] LABS: ALBUMIN 2.7 gm/dL (3.5-5.0); ANION GAP 11.7 (10.0-19.0); CALCIUM 8.1 mg/dL (8.5-10.5); CREATININE 1.7 mg/dL (0.6-1.3); PHOSPHORUS 2.8 mg/dL (2.5-4.9); POTASSIUM 3.7 mMol/L (3.7-5.1); TOTAL PROTEIN 5.9 g/dL (6.0-8.4)
[2017-04-25 04:37] LABS: TOTAL BILIRUBIN 0.4 mg/dL (0.0-1.5)
--- NOTE | 2017-04-25 16:51 | NUR ---
Significant Event: VSS AND 3L/NC. AFEBRILE. ICE PACK TO LT)UPPER SHOULDER FOR ACHE THIS AM, WITH RELIEF. HAS DENIED CP. HEPARIN GTT CONTINUES PER PROTOCOL; TO D/C AT 0200 FOR PREOP CABG. LT)UPPER ARM MIDLINE FLUSHES WELL WITH GOOD BLOOD RETURN. ALBUMIN, XAROXALYN, AND 40 MG IV LASIX GIVEN WITH GOOD UOP. STANDING WEIGHT WAS 116.3 KG TAKEN EARLY THIS AM. Follow up: CONTINUE PLAN OF CARE; NPO P MN FOR CABG AND RT)CEA IN THE AM. NA BICARB GTT START AT MN.
[2017-04-26 03:44] LABS: ALBUMIN 2.8 gm/dL (3.5-5.0); ANION GAP 16.3 (10.0-19.0); CALCIUM 9.2 mg/dL (8.5-10.5); CREATININE 1.8 mg/dL (0.6-1.3); PHOSPHORUS 2.4 mg/dL (2.5-4.9); POTASSIUM 4.3 mMol/L (3.7-5.1)
--- NOTE | 2017-04-26 04:03 | NUR ---
Significant Event: Patient A/Ox3. VSS on 3L NC. Up SBA to bathroom. CABG shower and wipes done at HS. Wipes to be done again at 0445. Heparin gtt d/c'd at 0200. Bicarb initiated at 0000 at 50ml/hr. Follow up: 3 vessel CABG this AM. R) carotid endartectomy this AM.
[2017-04-26 04:12] LABS: BICARBONATE 27.2 mmol/L (18.0-23.0); PCO2 41 mmHg (35-45); PO2 87 mmHg (80-90)
[2017-04-26 04:35] LABS: TOTAL PROTEIN 5.9 g/dL (6.0-8.4)
[2017-04-26 04:36] LABS: TOTAL BILIRUBIN 0.3 mg/dL (0.0-1.5)
[2017-04-26 04:45] LABS: HEMATOCRIT 24.6 % (33.0-50.0); MCH 30.3 pg (27.0-34.0); MCHC 32.5 gm/dL (32.0-36.5); MCV 93.2 fl (83.0-98.0); MPV 10.1 fl (9.4-12.4); RBC 2.64 M/uL (3.50-5.50); RDW-CV 14.6 % (11.9-14.6); WBC 10.6 K/uL (4.0-11.0)
[2017-04-26 05:03] LABS: INR - (THERAPEUTIC) 1.02 (0.92-1.07); PROTIME 10.7 SECONDS (9.8-11.4)
[2017-04-26 13:24] LABS: HEMATOCRIT 25.1 % (33.0-50.0); HEMOGLOBIN 8.6 g/dL (11.0-16.0); MCH 31.2 pg (27.0-34.0); MCHC 34.3 gm/dL (32.0-36.5); MCV 90.9 fl (83.0-98.0); RBC 2.76 M/uL (3.50-5.50); RDW-CV 14.5 % (11.9-14.6); WBC 12.9 K/uL (4.0-11.0)
[2017-04-26 13:30] LABS: PTT 31 SECONDS (25-32)
[2017-04-26 13:32] LABS: INR - (THERAPEUTIC) 1.27 (0.92-1.07); MPV 9.9 fl (9.4-12.4); PLATELET COUNT 108 K/uL (150-450); PROTIME 13.4 SECONDS (9.8-11.4)
[2017-04-26 13:41] LABS: BICARBONATE 25.4 mmol/L (18.0-23.0); PCO2 49 mmHg (35-45); PO2 110 mmHg (80-90)
[2017-04-26 13:42] LABS: POTASSIUM 4.4 mEq/L (3.7-5.1); SODIUM 137 mEq/L (135-145)
[2017-04-26 13:43] LABS: BICARBONATE 29.2 mmol/L (18.0-23.0); PCO2 46 mmHg (35-45); PO2 334 mmHg (80-90)
[2017-04-26 13:44] LABS: PCO2 44 mmHg (35-45)
[2017-04-26 13:44] LABS: POTASSIUM 5.2 mEq/L (3.7-5.1); SODIUM 139 mEq/L (135-145)
[2017-04-26 13:45] LABS: PO2 315 mmHg (80-90); POTASSIUM 5.3 mEq/L (3.7-5.1); SODIUM 137 mEq/L (135-145)
[2017-04-26 13:46] LABS: BICARBONATE 24.4 mmol/L (18.0-23.0); PCO2 41 mmHg (35-45); PO2 240 mmHg (80-90); SODIUM 137 mEq/L (135-145)
[2017-04-26 13:47] LABS: POTASSIUM 4.2 mEq/L (3.7-5.1)
[2017-04-26 14:25] LABS: ALPHA ANGLE 70 degrees; CLOTTING TIME 160 seconds
[2017-04-26 14:26] LABS: ALPHA ANGLE 69 degrees (70-81); CLOT FORMATION TIME 105 seconds; MAXIMUM CLOT FIRMNESS 52 mm; MAXIMUM CLOT FIRMNESS 53 mm (51-72); MAXIMUM LYSIS 0 %
[2017-04-26 14:27] LABS: CLOTTING TIME 59 seconds (43-82)
[2017-04-26 14:39] LABS: BICARBONATE 25.8 mmol/L (18.0-23.0)
[2017-04-26 14:44] LABS: PCO2 50 mmHg (35-45); PO2 63 mmHg (80-90)
[2017-04-26 14:53] LABS: CALCIUM 8.3 mg/dL (8.5-10.5); CREATININE 1.7 mg/dL (0.6-1.3)
[2017-04-26 14:54] LABS: ANION GAP 11.1 (10.0-19.0); POTASSIUM 4.1 mMol/L (3.7-5.1)
[2017-04-27 04:32] LABS: BICARBONATE 24.8 mmol/L (18.0-23.0); PCO2 45 mmHg (35-45)
[2017-04-27 04:33] LABS: PO2 77 mmHg (80-90)
[2017-04-27 04:52] LABS: ANION GAP 14.8 (10.0-19.0); CALCIUM 8.3 mg/dL (8.5-10.5); CREATININE 1.6 mg/dL (0.6-1.3); POTASSIUM 4.8 mMol/L (3.7-5.1)
[2017-04-27 05:23] LABS: HEMOGLOBIN 11.5 g/dL (11.0-16.0); MCV 88.6 fl (83.0-98.0); MPV 10.3 fl (9.4-12.4); RDW-CV 15.9 % (11.9-14.6)
[2017-04-27 05:35] LABS: MCH 29.7 pg (27.0-34.0); RBC 3.87 M/uL (3.50-5.50); WBC 18.3 K/uL (4.0-11.0)
--- NOTE | 2017-04-27 05:35 | NUR ---
SIGNIFICANT EVENT: PT DAY ONE POST 3 VESSEL CABG. alert and oriented x3. Weak cough. drowsy but easy to arouse. external pacer shut off. levo off. insulin gtt @ 2.25 units/h. Not able to stand to change position from bed to chair. Pt lifted into chair @ 0500. BP 90-120. Pulse 70-80. Generalized edema 2+. Able to move all extremeties to command, generalized weakness/fatigue. Temps 96-97. Lungs diminsihed. Friction rub. Sternal chest pain under control with norco q4h. Chest tubes x3 to suction, 490cc out. Follow up: transfer, PT, OT
[2017-04-27 05:36] LABS: HEMATOCRIT 34.3 % (33.0-50.0); MCHC 33.5 gm/dL (32.0-36.5)
--- NOTE | 2017-04-27 10:51 | NUR ---
A - NUTRITION FOLLOW-UP AND CONSULT FOR HEART HEALTHY/DIABETIC DIET EDUCATION POST CABG. CABG 04/26. PCU STATUS. LABS: GLU 131, BUN 53, CREA 1.6, ALB 2.8, PO4 2.4, TG 154, CHOLESTEROL 88, HDL 28 NEW MEDS: ELIQUIS, VIT D3, LASIX DIET: CONSISTENT CARBS/CARDIAC W/ 2000ML FLUID RESTRICTION. INTAKE WAS 75-100% BEFORE SURGERY. SIPS THIS MORNING. NOT APPROPRIATE FOR DIET EDUCATION AT THIS TIME. EST NEEDS: 9305-1209 KCAL, 125-160 GRAMS PROTEIN, FLUID NEEDS: PER MD D - INCREASED NUTRIENT NEEDS RELATED TO HEALING EVIDENCED BY RECENT OPEN HEART SURGERY. I - WILL TRIAL GLUCERNA ONCE DAILY. M/E - GOAL: PT WILL BE ABLE TO TOLERATE >50% OF MEALS IN 4-6 DAYS. PLAN: WILL ATTEMPT TO COMPLETE DIET EDUCATION APPROPRIATE PRIOR TO DISCHARGE.
--- NOTE | 2017-04-27 15:43 | NUR ---
Significant Event: AAOx3, Pupils 4mm brisk, drowsy at times. Obeys commands and moves spontaneously, equal moderate strength upper extremities. Equal weak strength to bilateral lower extremities. Systolic 90-100's, HR 70's, 2-3+ generalized edema, weak pulses throughout. D/C'd amiodarone drip at 1010, now taking PO. L.S. clear and diminished in upper lobes, diminished in bases on 4L via N.C, produces 750 at best with I.S. B.S. active, last BM 04/22, passing flatus. Song intact draining juan urine 40-300mL/hr. PIV R) hand infusing NaCl at 20mL/hr with Insulin. Mid-line L) upper arm SL'd. D/C'd L) subclavian central line at 1050 along with R) arterial line. Decreased appetite, gave Zofran last at 0900 d/t nausea; relief noted. Gave [place] last at 1355 for dull pain at surgical site. Chest tube to medial chest dressing intact, 270mL out this shift, serosangenous in color. Follow up: Stress I.S. usage and TC&DB, remind patient of heart hugger use. Up to chair 3Xdaily, 2000mL fluid restriction, hourly accuchecks, ADA, cardiac diet.
--- NOTE | 2017-04-28 03:24 | NUR ---
Significant Event: A/0X3. DROWSY MOST OF THE SHIFT. TURNED Q 2HRS SIDE TO SIDE. HEART HUGGER ON. NEEDS REMINDERS TO FOLLOW STERNAL PRECAUTIONS. AFEBRILE. VSS ON 2L. NORCO GIVEN X1. LAST DOSE WAS AT 1842. PATIENT RATES HIS PAIN HIGH THROUGHOUT THE NIGHT BUT REFUSED PAIN MEDS. PATIENT HAS RESTED COMFORTABLY OFF AND ON THROUGHOUT THE NIGHT. IV TO R) HAND SL. MIDLINE TO L) UPPER ARM HAS INSULIN GTT RUNNING AT 3 UNITS/H AND D5LR@ 20 MLS/H. FLUSHES WITH GOOD BLOOD RETURN. CHEST TUBE X3 TO ABD MIDLINE INTACT. HOOKED TO SUCTION HAD 50 MLS OF SEROSANGUINEOUS DRAINAGE OUT.HAS FLUCTUATIONS WITH RESPIRATIONS. DRESSING C/D/I. DRESSING TO STERNUM C/D/I. MCPHERSON PRESENT WITH 1000 MLS OF YELLOW URINE OUT. NO BM THIS SHIFT. HARVEST SITES TO L) LEG SUTURES INTACT. CALF SUTURE IS BLEEDING SLIGHTLY. OPEN TO AIR. Follow up: CONTINUE [facility] PLAN OF CARE. ENCOURAGE IS AND AMBULATION
[2017-04-28 04:14] LABS: HEMOGLOBIN 11.7 g/dL (11.0-16.0); MCH 30.8 pg (27.0-34.0); MCHC 33.4 gm/dL (32.0-36.5); MCV 92.1 fl (83.0-98.0); MPV 10.3 fl (9.4-12.4); RBC 3.8 M/uL (3.50-5.50); RDW-CV 16.1 % (11.9-14.6)
[2017-04-28 04:28] LABS: ANION GAP 12.8 (10.0-19.0); CALCIUM 8.5 mg/dL (8.5-10.5); CREATININE 1.9 mg/dL (0.6-1.3)
[2017-04-28 04:29] LABS: POTASSIUM 4.8 mMol/L (3.7-5.1)
--- NOTE | 2017-04-28 15:17 | NUR ---
Attempted several times to speak with patient regarding discharge plans and he falls asleep during the conversation and groggy when I try to wake him up. Anticipate he will need SNF before going home, as no family. Will continue to work on discharge plans. Will follow.
--- NOTE | 2017-04-28 16:58 | NUR ---
Significant Event: VSS AND 2-3L/NC. AFEBRILE. HAS BEEN DROWSY FOR MOST OF THE SHIFT, BUT ANSWERS ORIENTATION QUESTIONS APPROPRIATELY. UP TO THE RECLINER WITH PT/OT. 2 TABS NORCO X1 THIS AM WITH GOOD PAIN CONTROL. POOR APPETITE, NEEDS MUCH ENCOURAGEMENT WITH ACTIVITY AND EATING. CT TO SX WITH 80 MLS SEROSANGUINOUS DRAINAGE OUT, MEDIASTINAL CT D/C'D. MCPHERSON PATENT WITH 1100 MLS UOP. INSULIN GTT AND D5 LR D/C'D AND SSI INSULIN STARTED. REPOSITIONED Q2H. STERNAL AND CT DRESSINGS REMAIN C/D/I. Follow up: CONTINUE PLAN OF CARE.
[2017-04-29 04:21] LABS: BASOPHIL # 0.1 K/uL (0.0-0.2); BASOPHIL % 0.4 %; EOSINOPHIL # 0.1 K/uL (0.0-0.5); EOSINOPHIL % 0.6 %; HEMATOCRIT 34.3 % (33.0-50.0); HEMOGLOBIN 11.4 g/dL (11.0-16.0); IMMATURE GRANULOCYTE # 0.2 K/uL (0.0-0.3); IMMATURE GRANULOCYTE % 1.7 %; LYMPHOCYTE # 1.4 K/uL (0.8-4.0); LYMPHOCYTE % 9.6 %; MCH 30.5 pg (27.0-34.0); MCHC 33.2 gm/dL (32.0-36.5); MCV 91.7 fl (83.0-98.0); MONOCYTE # 1.2 K/uL (0.0-1.0); MPV 9.8 fl (9.4-12.4); NEUTROPHIL # (ANC) 11.4 K/uL (1.4-9.0); NEUTROPHIL % 79.7 %; NRBC % 0.1 /100WBC (0-0.00); PLATELET COUNT 160 K/uL (150-450); RBC 3.74 M/uL (3.50-5.50); RDW-CV 15.7 % (11.9-14.6); WBC 14.3 K/uL (4.0-11.0)
[2017-04-29 04:38] LABS: ANION GAP 11.1 (10.0-19.0); CALCIUM 8.7 mg/dL (8.5-10.5); CREATININE 1.9 mg/dL (0.6-1.3); POTASSIUM 4.1 mMol/L (3.7-5.1)
--- NOTE | 2017-04-29 05:14 | NUR ---
Significant Event: REMAINS DROWSY ALL NIGHT. DOES EASILY AWAKEN. REMAINS ON 2L O2 ALL NIGHT. CHEST TUBE REMAINS PATENT WITH 100 ML OF SEROSANG DRAINAGE. UO 1100 ML. DOES C/O PAIN BUT REFUSED PAIN MEDS. HE WAS ENCOURAGED TO TAKE AT LEAST 1 PAIN PILL TO HELP HIM COUGH BUT HE REFUSED. Follow up:
--- NOTE | 2017-04-29 16:33 | NUR ---
PATIENT A&Ox3 BUT DROWSY AT TIMES. VITAL SIGN STABLES. PATIENT CONTINUES ON 2L OXYGEN AT ALL TIMES. CHEST TUBE HAD 100ML OF SEROSANGUOUS DRAINAGE. DRESSING REMAINS DRY AND INTACT. PATIENT DOES NOT COMPLAIN OF PAIN BUT REFUSES TO COUGH. PT WAS ENCOURAGED TO USE INCENTIVE SPIROMETER AND DEEP BREATH. APPETITE REMAINS POOR. 24 HR URINE COLLECTION STARTED AT 1308. FOLLOW UP: SWING BED WHEN DISCHARGED
--- NOTE | 2017-04-30 04:21 | NUR ---
A/O. FORGETFUL. HR 70-80s. SBP 100-120s. 2L O2. AFEBRILE. CT WITH 60ML OUT. MCPHERSON 700ML UOP CONTINUE 24HR URINE. DENIES PAIN. 2A TO CHAIR. HEART HUGGER IN USE. NO BM
[2017-04-30 05:18] LABS: BASOPHIL # 0.1 K/uL (0.0-0.2); BASOPHIL % 0.5 %; EOSINOPHIL # 0.2 K/uL (0.0-0.5); EOSINOPHIL % 1.7 %; HEMATOCRIT 35.2 % (33.0-50.0); HEMOGLOBIN 11.5 g/dL (11.0-16.0); IMMATURE GRANULOCYTE # 0.1 K/uL (0.0-0.3); LYMPHOCYTE # 1.7 K/uL (0.8-4.0); MCH 30.2 pg (27.0-34.0); MCHC 32.7 gm/dL (32.0-36.5); MCV 92.4 fl (83.0-98.0); MONOCYTE # 1.1 K/uL (0.0-1.0); MONOCYTE % 8.4 %; MPV 9.6 fl (9.4-12.4); NEUTROPHIL % 75.4 %; NRBC % 0 /100WBC (0-0.00); PLATELET COUNT 191 K/uL (150-450); RBC 3.81 M/uL (3.50-5.50); RDW-CV 15.6 % (11.9-14.6); WBC 13.3 K/uL (4.0-11.0)
[2017-04-30 05:31] LABS: ANION GAP 9.2 (10.0-19.0); CALCIUM 8.9 mg/dL (8.5-10.5); MAGNESIUM 2.3 mg/dL (1.8-2.6); PHOSPHORUS 3.3 mg/dL (2.5-4.9); POTASSIUM 4.2 mMol/L (3.7-5.1)
--- NOTE | 2017-04-30 17:12 | NUR ---
PT IS A&0X3 BUT CONTINUES TO BE DROWSY. VITAL SIGNS STABLE AND CONTINUES ON 2L O2 VIA NASAL CANNULA. PATIENT HAS NOT HAD A BOWEL MOVEMENT SINCE 04/22/17. PATIENT WAS GIVEN MAG CITRATE TO DRINK AND IS TO BE REPEATED AT 2130 IF NO RESULTS. PATIENTS APPETITE IMPROVED TODAY. PATIENT ALSO STARTED IN LEVEMIR AT NIGHT FOR BLOOD GLUCOSE CONTROL. L) GROIN DRESSING REMOVED. FOLLOW UP: DULCOLAX SUPPOSITORY AM IF NO BOWEL MOVEMENT. SWING BED AT DISACHARGE.
--- NOTE | 2017-05-01 04:18 | NUR ---
A/O. HR 70-80s. SBP 100-130s. 2L O2. AFEBRILE. CHEST TUBE WITH 60ML OUT. MCPHERSON 575 OUT. XL BM LAST NIGHT. DENIES PAIN. 2A WALKER UP TO BEDSIDE COMMODE.
--- NOTE | 2017-05-01 04:27 | NUR ---
A/O. HR 110-120s. SBP 130s. TEMP MAX 99.5. ROOM AIR. MCPHERSON SLIGHTLY BLOODY. 2000 ML UOP. NS RUNNING AT 200 ML/HR. ACCUCHECKS Q2HR, LEVIMIR 9 UNITS GIVEN. DENIES PAIN. NO BM. SBA
--- NOTE | 2017-05-01 12:30 | NUR ---
This a.m. received call from Nicole at [facility]. She says his neice or someone called about him needing skilled care. Nicole says they do have beds if he wants to come there, they would consider him. Told her I need to talk with him as he was to sleepy on Monday. Talked to patient about skilled care and he says he wants to go to [facility]. Told him about call from [facility] and he says he prefers the [facility] in [place]. Talked about transportation and he says he will be able to find someone to transport him when he is ready for [facility]. Left [facility] for Jeanette at [facility] and referral faxed. Will follow.
--- NOTE | 2017-05-01 13:53 | NUR ---
A-NUTRITION F/U S/P CABG. CHEST TUBE IN. PLAN TO GO TO [facility] WHEN D/C FROM [facility] CBW: 110.4 KG; WT DOWN FROM 113.6 KG ON 04/30. (+)BM FINALLY LABS: NA 139, K+ 4.2, GLU 99, BUN 48, FENCE GATE ASSEMBLER 2.0, CRP 15.40 MEDS: MIRALAX, SENOKOT, COLACE, LEVEMIR (ADJ) DIET RX: CONSISTENT CARB/2-3 GM NA/LOW FAT W/2000 ML FLUID RESTRICTION PO INTAKE HAS BEEN POOR; HAS IMPROVED TODAY TO 50-100%. GLUCERNA QD. EST NUTR NEEDS: 4831-6297 KCALS AND 125-160 GM PROTEIN D-AT NUTRITION RISK W/INADEQUATE ORAL INTAKE R/T ALTERED APPETITE SECONDARY TO RECENT CABG AEB INTAKE RECORDS, WT LOSS I-1)INCREASE GLUCERNA FROM QD TO BID 2)PT IS NOT APPROPRIATE FOR DIET ED AT THIS TIME M/E-GOAL: PO INTAKE >/=50% BY DISCHARGE 1)F/U PO INTAKE, SUPPLEMENT, WT, AND POC IN 3-5 DAYS 2)ASSIST NEEDED
--- NOTE | 2017-05-01 16:49 | NUR ---
PT A&Ox3 AND DROWSY. DRESSINGS DRY AND INTACT. CHEST TUBE DRAINAGE WAS 200 ML. PATIENT DENIES ANY PAIN. ORDER CHANGED FOR INSULIN TO A MILD SLIDING SCALE. PATIENT CONTINUES ON 2L OXYGEN AND IS SLIGHTLY COARSE IN THE L) SIDE. PATIENT HAD EXTRA LARGE LOOSE STOOL TODAY AND 750 OUT OF MCPHERSON. FOLLOW UP: SWING BED AT DISCHARGE. CONTINUE WITH PLAN OF CARE.
[2017-05-02 04:22] LABS: BASOPHIL # 0.1 K/uL (0.0-0.2); BASOPHIL % 0.6 %; EOSINOPHIL # 0.4 K/uL (0.0-0.5); EOSINOPHIL % 3.5 %; HEMATOCRIT 34.8 % (33.0-50.0); HEMOGLOBIN 11.4 g/dL (11.0-16.0); IMMATURE GRANULOCYTE # 0.1 K/uL (0.0-0.3); IMMATURE GRANULOCYTE % 0.8 %; LYMPHOCYTE # 1.5 K/uL (0.8-4.0); LYMPHOCYTE % 12.8 %; MCH 30.6 pg (27.0-34.0); MCHC 32.8 gm/dL (32.0-36.5); MCV 93.3 fl (83.0-98.0); MONOCYTE # 1.2 K/uL (0.0-1.0); MONOCYTE % 10.1 %; MPV 9.3 fl (9.4-12.4); NEUTROPHIL # (ANC) 8.2 K/uL (1.4-9.0); NEUTROPHIL % 72.2 %; NRBC % 0 /100WBC (0-0.00); RBC 3.73 M/uL (3.50-5.50); RDW-CV 14.9 % (11.9-14.6); WBC 11.3 K/uL (4.0-11.0)
[2017-05-02 04:23] LABS: PLATELET COUNT 274 K/uL (150-450)
--- NOTE | 2017-05-02 04:31 | NUR ---
Patient alert and oriented. Transfers 2A GB/Walker. No output in chest tube. Dressing clean/dry/intact. Sternal incison open to air. VSS on 2L of O2. Clear and diminished lung sounds. Hyperactive bowel sounds. 650 out of eason. ACHS accu check, blood sugar 399. Carb count. Denies pain. Midline to L) arm, SL to R) hand. Refused to reposition throughout the night otherwise cooperative with cares.
[2017-05-02 04:37] LABS: ALBUMIN 2.3 gm/dL (3.5-5.0); ANION GAP 10.1 (10.0-19.0); CALCIUM 8.2 mg/dL (8.5-10.5); CREATININE 2.2 mg/dL (0.6-1.3); PHOSPHORUS 3.4 mg/dL (2.5-4.9); POTASSIUM 4.1 mMol/L (3.7-5.1)
--- NOTE | 2017-05-02 10:45 | NUR ---
Spoke with Nereida at [facility]. She says his PA Radha Courtney does not do hospital rounds so she has sent the referral to Dr. Taylor to review. She will let me know their decision. Will follow.
--- NOTE | 2017-05-02 16:45 | NUR ---
Significant Event: VSS AND 2L/NC. AFEBRILE. DENIES PAIN. HAD A GOOD DAY. UP AND AMBULATES WITH CARDIAC REHAB OUT TO DESK AND PT UP TO DOOR IN THE ROOM, UP TO RECLINER MOST OF DAY. CT TO SX WITH 20 MLS SEROSANGUINOUS DRAINAGE OUT. MCPHERSON WITH 775 MLS UOP. REPOSITIONED Q2H. STERNAL INCISION IS APPROXIMATED WITHOUT DRAINAGE. INSULINS ADJUSTED AND DIABETIC ED TO SEE. HAD 2 MOD LOOSE BMS. Follow up: CONTINUE PLAN OF CARE; TO [facility] WHEN IS READY TO D/C.
--- NOTE | 2017-05-03 04:59 | NUR ---
Significant Event: A/O, SBP 90-110s, HR 70s, 2L O2, denies pain, CT drained 40ml serosang fluid, dressing dry/intact, sternum approximated and open to air, eason discontinued by at 0445, had 500ml UOP, HS accucheck 226, 2assist transfers Follow up: continue to work on discharge plans, [place] [facility]?
[2017-05-03 08:34] LABS: ALBUMIN 2.3 gm/dL (3.5-5.0); ANION GAP 11.8 (10.0-19.0); CALCIUM 8.2 mg/dL (8.5-10.5); CREATININE 2.2 mg/dL (0.6-1.3); PHOSPHORUS 3.7 mg/dL (2.5-4.9); POTASSIUM 3.8 mMol/L (3.7-5.1)
--- NOTE | 2017-05-03 14:45 | NUR ---
Spoke with patient earlier today and he plans on [facility] when ready for discharge. Talked about transportation and he says he will be able to find someone to come and take him to [facility]. Told him waiting for decision from [facility]. Call this afternoon from [facility] at [place] [facility] and Dr. Taylor has agreed to follow him. Told her it will probably be Monday when patient ready for transfer. Told her I will fax her an update tomorrow. Will follow.
--- NOTE | 2017-05-03 15:54 | NUR ---
Diabetes Consult: Referral received to educate patient on carb counting. In talking with the patient, he is new to insulin therapy. The patient was instructed on portion sizes, foods that contain carbs and 1 carb choice is equivalent to 15 grams of carbohydrate. The patient was educated on his current insulin to carb ratio of 3 units for every 15 grams of carbs. He is not interested in reading a food label, but may be able to count carbs based on portions. The patient still required education regarding insulin administration. Will plan to continue education tomorrow.
--- NOTE | 2017-05-03 17:12 | NUR ---
A&O. 2PA. NO C/O PAIN. SBP 100'S-110'S. HR 70'S. 2L02, AFEBRILE. LS CLEAR/DIM. CX TUBE DC'D TODAY. CX TUBE SITES X3. MIDLINE CX CHIEF DEVELOPMENT OFFICER. RE-PLACED MCPHERSON FOR RETENTION. ACHS W/ CARB COUNT. PLAN IS RENAL BIOPSY SATURDAY 05/05. NPO MN ON 05/04 HOLDING ELEQUIS AND ASA.
--- NOTE | 2017-05-04 05:12 | NUR ---
Significant Event: PATIENT IS A/O X3 BUT FORGETFUL. VSS. HR 70'S. SBP 100-120'S. AFEBRILE. 02 SATS IN LOW TO MID 90'S INCREASED TO 2L 02 PER NC PATIENT PATIENT'S HOME NIGHT TIME 02 DOSE. NO C/O PAIN. LUNGS CLEAR/DIM TO DIM. UP WITH 2A TO BEDSIDE COMMODE. BOWELS ACTITVE. MCPHERSON INTACT WITH 425 ML UOP. MID STERNUM INCISION OPEN TO AIR. RIGHT CAROTID INCISION OPEN TO AIR WITH OLD CRUSTY BLOOD DRAINAGE TO SITE. PATIENT FEELS LIKE AREA IS ENLARGED BUT NO DIFFICULTY SWOLLOWING. THREE OLD CHEST TUBE SITES COVERED WITH DRESSING. DRESSINGS C/D/I. RIGHT LEG 3 SITES FOR VESSELS. ALL STICHED AND OPEN TO AIR. CONTINUES TO HAVE SCABS/ECCHYMOSIS TO BILATERAL ARMS. RIGHT HAND IV SL. LEFT UPPER ARM MIDLINE SL. CONTINUES TO HAVE 1+ LOWER EXTREMITY EDEMA. ON ACHS ACCUCHECKS. Follow up: CONTINUE TO MONITOR PER PLAN OF CARE.
[2017-05-04 06:10] LABS: BASOPHIL # 0.1 K/uL (0.0-0.2); BASOPHIL % 1.2 %; EOSINOPHIL # 0.6 K/uL (0.0-0.5); EOSINOPHIL % 6.6 %; HEMATOCRIT 35.3 % (33.0-50.0); HEMOGLOBIN 11.1 g/dL (11.0-16.0); IMMATURE GRANULOCYTE # 0.1 K/uL (0.0-0.3); IMMATURE GRANULOCYTE % 0.6 %; LYMPHOCYTE # 1.4 K/uL (0.8-4.0); MCH 29.4 pg (27.0-34.0); MCHC 31.4 gm/dL (32.0-36.5); MCV 93.4 fl (83.0-98.0); NEUTROPHIL # (ANC) 5.5 K/uL (1.4-9.0); NEUTROPHIL % 63.6 %; NRBC % 0 /100WBC (0-0.00); RBC 3.78 M/uL (3.50-5.50); RDW-CV 14.5 % (11.9-14.6); WBC 8.6 K/uL (4.0-11.0)
[2017-05-04 06:14] LABS: PLATELET COUNT 356 K/uL (150-450)
[2017-05-04 06:19] LABS: PROTIME 10.6 SECONDS (9.8-11.4)
[2017-05-04 06:21] LABS: ALBUMIN 2.2 gm/dL (3.5-5.0); ANION GAP 12.1 (10.0-19.0); CALCIUM 8.2 mg/dL (8.5-10.5); CREATININE 2.1 mg/dL (0.6-1.3); PHOSPHORUS 3.3 mg/dL (2.5-4.9); POTASSIUM 4.1 mMol/L (3.7-5.1)
[2017-05-04 06:22] LABS: INR - (THERAPEUTIC) 1.01 (0.92-1.07)
--- NOTE | 2017-05-04 10:45 | NUR ---
Diabetes consult: Visited with the patient this morning regarding carb count and insulin dosing. The patient was provided with a sheet that depicts pictures of Novolog and Levemir insulin pens and has his current doses. The patient is doing well with carb count and insulin dosing. He is able to verbalize the correct dose of insulin to inject. The patient was instructed on how to use the insulin pen, site rotation, storage of insulin and treatment for hypoglycemia. The patient was able to redemonstrate the use of the insulin pen without difficulty. The patient was provided with a Contour Next EZ glucometer. He indicates this is the same glucometer he had at home. He reports his home glucometer is "old". Visit was interrupted by nutrition services with the patient's lunch and a visit by Dr. Castañeda. PAtient will be having a renal biopsy tomorrow afternoon. Will plan to return tomorrow morning and make sure the patient understands how to use his glucometer.
--- NOTE | 2017-05-04 14:30 | NUR ---
Clinical update faxed to Nereida at [facility] in [place]. Will follow.
[2017-05-04 14:44] LABS: CH50 COMPLEMENT >185 (60-185)
--- NOTE | 2017-05-04 15:23 | NUR ---
A-NUTRITION F/U VISITED W/PT RE: SUPPLEMENT ACCEPTANCE. PT DOES NOT LIKE GLUCERNA. HIS PO INTAKE IMPROVED TO 100% SINCE LAST F/U. PT SAID HE IS EATING BETTER B/C HE IS ORDERING HIS OWN MEALS AND GETTING WHAT HE LIKES. APPERENTLY HIS NIECE WAS ORDERING FOR HIM AND HE WAS NOT GETTING WHAT HE LIKED AND HIS APPETITE HAS IMPROVED ALSO. PT STATES THAT HE IS GOING TO GO TO [facility] ON MONDAY. 1+ BLE EDEMA. RENAL BX TOMORROW. 05/03 CHEST TUBE D/C LABS: NA 140, K+ 4.1, GLU 85, BUN 43, COMMUNITY COORDINATOR FOR HIGH SCHOOL 2.1, ALB 2.2 MEDS: NOVOLOG, LEVEMIR, LASID DIET RX: CARDIAC. PO INTAKE IMPROVED EST NUTR NEEDS: 5801-4954 KCALS AND 125-160 GM PROTEIN D-AT NUTRITION RISK W/RECENT INADEQUATE ORAL INTAKE R/T ALTERED APPETITE AEB INTAKE RECORDS, PT REPORT. I-D/C GLUCERNA, PER PT REQUEST. M/E-GOAL: PO INTAKE >/=50% FOR DURATION OF ADMIT 1)F/U PO INTAKE AND POC IN 4-6 DAYS 2)ASSIST NEEDED
--- NOTE | 2017-05-04 15:39 | NUR ---
A&O. 1-2PA. VSS. NO C/O PAIN. LS CLEAR/DIM. HAD DIZZY EPISODE IN HALLWAY TODAY/KNEES BUCKLED(NO CONTACT WITH FLOOR). C/O SWELLING/SORENESS TO R NECK ISIDRO LOOKED AT IT WILL CHECK TOMORROW. ACHS WITH CARB COUNT NPO TONIGHT FOR RENAL BIOPSY TOMORROW/PERMITS ON CHART. PLAN IS [facility]D SWING BED MONDAY?
[2017-05-05 03:22] LABS: HEMATOCRIT 34.3 % (33.0-50.0); MCH 29.6 pg (27.0-34.0); MCHC 32.1 gm/dL (32.0-36.5); MCV 92.5 fl (83.0-98.0); MPV 8.7 fl (9.4-12.4); PLATELET COUNT 408 K/uL (150-450); RBC 3.71 M/uL (3.50-5.50); RDW-CV 14.3 % (11.9-14.6); WBC 9.9 K/uL (4.0-11.0)
[2017-05-05 03:29] LABS: PROTIME 10.5 SECONDS (9.8-11.4)
[2017-05-05 03:37] LABS: ALBUMIN 2.2 gm/dL (3.5-5.0); ANION GAP 9.1 (10.0-19.0); CREATININE 2.2 mg/dL (0.6-1.3); PHOSPHORUS 2.8 mg/dL (2.5-4.9); POTASSIUM 4.1 mMol/L (3.7-5.1)
[2017-05-05 04:10] LABS: ABSOLUTE NEUTROPHIL CT (ANC) 6.6 K/uL (1.4-9.0); LYMPHOCYTE # 1.6 K/uL (0.8-4.0); LYMPHOCYTE % 16 %; MONOCYTE # 1.3 K/uL (0.0-1.0); SEGMENTED NEUTROPHIL # 6.6 K/uL (1.4-9.0); SEGMENTED NEUTROPHIL % 67 %
--- NOTE | 2017-05-05 05:39 | NUR ---
Significant Event: PT A/0 X3. VSS. HR 75-80. SBP 100-120'S. O2 SATS LOW TO MID 90'S. O2 1L PER NC. MCPHERSON INTACT WITH 575ML UOP. BOWELS ACTIVE. MID STERNUM INCISION OPEN TO AIR. RIGHT CAROTID INCISION OPEN TO AIR, SOME SWELLING BUT NO PROBLEMS WITH SWALLOWING. ISIDRO WILL CHECK ON THIS AM. RIGHT LEG THREE SITES, NO DRAINAGE OPEN TO AIR. ACHS WITH CARB COUNT. RIGHT HAND IV SL, LEFT MIDLINE SL. PT HAS BEEN NPO AFTER MIDNIGHT FOR RENAL BIOPSY SOMETIME TODAY. PLAN FOR SWING BED IN [facility] MONDAY. Follow up: RENAL BIOPSY TODAY
--- NOTE | 2017-05-05 18:51 | NUR ---
PATIENT HAS BEEN IN GOOD SPIRITS. HE WAS UP AND IN THE CHAIR FOR AN HOUR PRIOR TO HIS BIOPSY. AFTER HE RETURNED HE ATE LUNCH AND STAYED FLAT FOR 6 HOURS AND WAS COMPLIANT. PATIENT HAS HAD NO ISSUES WITH BLOOD PRESSURE TODAY, NO SHORTNESS OF BREATH, AND NO PAIN.
--- NOTE | 2017-05-05 18:54 | NUR ---
1010 OFF UNIT WITH TRANSPORTATION TO BIOPSY.
--- NOTE | 2017-05-06 04:30 | NUR ---
Significant Event: PATIENT IS A/O X3. VSS. HR 70-80'S. SBP 100'S. AFEBRILE. 02 SATS IN MID 90'S UP TO 2L 02 PER HOME NIGHT O2 DOSE. NO C/O PAIN. LUNGS CLEAR/DIM TO DIM. UP WITH 2A WITH WALKER/GB AND HEART HUGGER/STERNAL PRECAUTIONS. BOWELS ACTIVE. MCPHERSON INTACT WITH 400 ML UOP. MIDSTERNAL, RIGHT NECK SITES OPEN TO AIR WITH EDGES APPROXIMATED. CT SITE X3. LEFT LEG HARVEST SITES SUTURED AND OPEN TO AIR. IV TO RIGHT HAND SL. LEFT UPPER ARM MIDLINE SL. HAS 1+ LOWER EXTREMITY EDEMA. ON ACHS ACCUCHECK AND CARB COUNT. Follow up: CONTINUE TO MONITOR PER PLAN OF CARE.
[2017-05-06 05:00] LABS: BASOPHIL # 0.1 K/uL (0.0-0.2); BASOPHIL % 0.8 %; EOSINOPHIL # 0.4 K/uL (0.0-0.5); EOSINOPHIL % 3.6 %; HEMATOCRIT 34.6 % (33.0-50.0); HEMOGLOBIN 11.1 g/dL (11.0-16.0); IMMATURE GRANULOCYTE % 0.4 %; LYMPHOCYTE # 1.6 K/uL (0.8-4.0); LYMPHOCYTE % 16.8 %; MCH 29.9 pg (27.0-34.0); MCHC 32.1 gm/dL (32.0-36.5); MCV 93.3 fl (83.0-98.0); MONOCYTE # 1.2 K/uL (0.0-1.0); MONOCYTE % 12.8 %; MPV 8.9 fl (9.4-12.4); NEUTROPHIL # (ANC) 6.3 K/uL (1.4-9.0); NEUTROPHIL % 65.6 %; NRBC % 0 /100WBC (0-0.00); PLATELET COUNT 367 K/uL (150-450); RBC 3.71 M/uL (3.50-5.50); RDW-CV 14.3 % (11.9-14.6); WBC 9.6 K/uL (4.0-11.0)
[2017-05-06 05:10] LABS: PROTIME 10.5 SECONDS (9.8-11.4)
[2017-05-06 05:14] LABS: ALBUMIN 2.2 gm/dL (3.5-5.0); ANION GAP 11.2 (10.0-19.0); CALCIUM 8.3 mg/dL (8.5-10.5); POTASSIUM 4.2 mMol/L (3.7-5.1)
--- NOTE | 2017-05-06 12:20 | NUR ---
Significant Event:A/O X 3. Ambulates with 1 assist, gait belt and walker, needs reminders to use heart hugger. UP to recliner for meals. NSR. O2 @ 1L/NC during the day. Tolerating ADA diet and fluids. NO BM today. Blood sugars do not need corrected. Carb count insulin given. Incisions approximated. sutures to L) harvest sites x 3. Song patent for unmanageable urinary retention. Reports no pain, numbness or tingling anywhere. Follow up:[facility] Monday.
--- NOTE | 2017-05-07 04:41 | NUR ---
Patient alert and oriented. Transfers 1A GB/Walker. Sternal precautions, need encouragement to use heart hugger. Incsion to sternum and drain sites approximated and open to air. [place] sites to L) leg X3, sutured. On 1L of O2 during the day and 2L at Night. Song patent. ACHS accu check with carb count. IV to R) hand. Midline to L) arm. Denies pain. VSS. Cooperative with cares. Plans to D/C on Monday to bed.
[2017-05-07 04:55] LABS: BASOPHIL # 0.1 K/uL (0.0-0.2); BASOPHIL % 1.1 %; EOSINOPHIL # 0.3 K/uL (0.0-0.5); EOSINOPHIL % 3.6 %; HEMATOCRIT 35.1 % (33.0-50.0); IMMATURE GRANULOCYTE # 0.1 K/uL (0.0-0.3); IMMATURE GRANULOCYTE % 0.6 %; LYMPHOCYTE # 1.8 K/uL (0.8-4.0); LYMPHOCYTE % 19.4 %; MCH 29.5 pg (27.0-34.0); MCHC 31.3 gm/dL (32.0-36.5); MCV 94.1 fl (83.0-98.0); MONOCYTE # 1.1 K/uL (0.0-1.0); MONOCYTE % 11.9 %; MPV 8.9 fl (9.4-12.4); NEUTROPHIL # (ANC) 5.8 K/uL (1.4-9.0); NEUTROPHIL % 63.4 %; NRBC % 0 /100WBC (0-0.00); PLATELET COUNT 388 K/uL (150-450); RBC 3.73 M/uL (3.50-5.50); RDW-CV 14.4 % (11.9-14.6); WBC 9.1 K/uL (4.0-11.0)
[2017-05-07 05:02] LABS: INR - (THERAPEUTIC) 0.98 (0.92-1.07); PROTIME 10.3 SECONDS (9.8-11.4)
[2017-05-07 05:10] LABS: ALBUMIN 2.2 gm/dL (3.5-5.0); ANION GAP 9.2 (10.0-19.0); CALCIUM 8.2 mg/dL (8.5-10.5); CREATININE 2.2 mg/dL (0.6-1.3); PHOSPHORUS 3.1 mg/dL (2.5-4.9); POTASSIUM 4.2 mMol/L (3.7-5.1)
--- NOTE | 2017-05-08 04:15 | NUR ---
Significant Event: Patient A/Ox3. VSS on 2L NC. Up 1-assist to bathroom with walker, gait belt, and heart hugger. Large bowel movement this shift. 425ml out of eason catheter. Sternal incision and chest tube sites open to air healing nicely. Follow up: Discharge to [facility] today
[2017-05-08 05:22] LABS: BASOPHIL # 0.1 K/uL (0.0-0.2); BASOPHIL % 1.1 %; EOSINOPHIL # 0.3 K/uL (0.0-0.5); EOSINOPHIL % 3.9 %; HEMATOCRIT 35.5 % (33.0-50.0); HEMOGLOBIN 11.3 g/dL (11.0-16.0); IMMATURE GRANULOCYTE % 0.5 %; LYMPHOCYTE # 1.8 K/uL (0.8-4.0); LYMPHOCYTE % 20.2 %; MCH 29.9 pg (27.0-34.0); MCHC 31.8 gm/dL (32.0-36.5); MCV 93.9 fl (83.0-98.0); MONOCYTE # 0.9 K/uL (0.0-1.0); MONOCYTE % 10.1 %; MPV 8.9 fl (9.4-12.4); NEUTROPHIL # (ANC) 5.6 K/uL (1.4-9.0); NEUTROPHIL % 64.2 %; NRBC % 0 /100WBC (0-0.00); PLATELET COUNT 413 K/uL (150-450); RBC 3.78 M/uL (3.50-5.50); RDW-CV 14.4 % (11.9-14.6); WBC 8.8 K/uL (4.0-11.0)
[2017-05-08 05:28] LABS: INR - (THERAPEUTIC) 0.96 (0.92-1.07); PROTIME 10.1 SECONDS (9.8-11.4)
[2017-05-08 05:33] LABS: ALBUMIN 2.3 gm/dL (3.5-5.0); ANION GAP 9.3 (10.0-19.0); CALCIUM 8.4 mg/dL (8.5-10.5); CREATININE 2.1 mg/dL (0.6-1.3); PHOSPHORUS 3.1 mg/dL (2.5-4.9); POTASSIUM 4.3 mMol/L (3.7-5.1)
--- NOTE | 2017-05-08 16:32 | NUR ---
SIGNIFICANT EVENT: PATIENT ALERT, ORIENTED X3. PUPILS EQUAL AND REACTIVE. MOVES ALL 4 EXTREMITIES SPONTANEOUSLY AND TO COMMANDS. EQUAL STRENGTH THROUGHUT. DENIES ANY NUMBNESS, TINGLING, OR PAIN. PATIENT'S SPEECH IS CLEAR AND APPROPRIATE. PATIENT HAS BEEN IN SINUS RHYTHM, HR 70S. PULSES PALPABLE THROUGHOUT. BP STBALE, SBP 100-110S, AMP>65. AFEBRILE. PATIENT ON 2 L NASAL CANNULA, SATS MID 90S. SPONT COUGH. BOWEL SOUNDS PRESENT, NO BM TODAY. MCPHERSON INTACT, ADEQUATE URINE OUTPUT. MCPHERSON TO STAY IN PER MD ORDER. FOLLOW UP: CONTINUE TO MONITOR, PATIENT TO BE DISCHARGED TO ORD. ALL BELONGINGS GATHERED AND SENT WITH PATIENT.
[2017-06-02] MEDS ORDERED: ZAROXOLYN2.5 MG PO (10:54)
[2017-06-02] MEDS ORDERED: NOVOLOG100 UNIT/M SUB-Q (10:56)
[2017-06-02] MEDS ORDERED: COLACE100 MG PO (10:56)
[2017-06-02] MEDS ORDERED: MILK OF MA400 MG/5 M PO (10:57)
[2017-06-02] MEDS ORDERED: COREG 3.1253.125 MG PO (11:00)
[2017-06-02] MEDS ORDERED: CORDARONE,PACE200 MG PO (11:00)
[2017-06-02] MEDS ORDERED: MUCUS ER600 MG PO (11:01)
[2017-06-02] MEDS ORDERED: LEVEMIR100 UNIT/1 SUB-Q (11:01)
[2017-06-02] MEDS ORDERED: POTASSIUM CHLO10 MEQ PO (14:11)
[2017-06-02] MEDS ORDERED: LASIX40 MG PO (14:12)
[2017-06-08] MEDS ORDERED: TYLENOL325 MG PO (13:06)
[2017-06-08] MEDS ORDERED: POTASSIUM CHLO20 ME1 PO (13:13)
[2017-06-08] MEDS ORDERED: SENNA8.6 MG PO (13:14)
[2017-06-08] MEDS ORDERED: FOSAMAX70 MG PO (13:17)
[2017-06-08] MEDS ORDERED: ACTOS 15 MG15 MG PO (13:18)
[2017-06-08] MEDS ORDERED: OXYGEN M-15 INH (13:21)
== END 2017-05-08 17:00 | disposition swing bed (61) | DRG 231 ==
LOC: EDSEX 09:00 → GICU 10:50 → GPCU 10:50 → GNTU 04-26 05:51 → GICU 04-26 11:51 → GPCU 04-27 17:34
PROVIDERS: Internal Medicine; Internal Medicine Interventional Cardiology; Internal Medicine Nephrology; Nurse Practitioner; Nurse Practitioner Acute Care; Nurse Practitioner Women's Health; Radiology Diagnostic Radiology; Thoracic Surgery (Cardiothoracic Vascular Surgery); ADMIT Internal Medicine
PROC: 0T9B80Z Drainage of Bladder with Drainage Device, Via Natural or Artificial Opening Endoscopic (ICD-10-PCS; 2017-04-21)
PROC: 0V508ZZ Destruction of Prostate, Via Natural or Artificial Opening Endoscopic (ICD-10-PCS; 2017-04-21)
PROC: 0TCB8ZZ Extirpation of Matter from Bladder, Via Natural or Artificial Opening Endoscopic (ICD-10-PCS; 2017-04-21)
PROC: 02703ZZ Dilation of Coronary Artery, One Artery, Percutaneous Approach (ICD-10-PCS; 2017-04-21)
PROC: B2111ZZ Fluoroscopy of Multiple Coronary Arteries using Low Osmolar Contrast (ICD-10-PCS; 2017-04-21)
PROC: 4A023N7 Measurement of Cardiac Sampling and Pressure, Left Heart, Percutaneous Approach (ICD-10-PCS; 2017-04-21)
PROC: B24BZZ4 Ultrasonography of Heart with Aorta, Transesophageal (ICD-10-PCS; principal; 2017-04-26)
PROC: 5A1221Z Performance of Cardiac Output, Continuous (ICD-10-PCS; principal; 2017-04-26)
PROC: 02HV33Z Insertion of Infusion Device into Superior Vena Cava, Percutaneous Approach (ICD-10-PCS; principal; 2017-04-26)
PROC: 03UK0KZ Supplement Right Internal Carotid Artery with Nonautologous Tissue Substitute, Open Approach (ICD-10-PCS; principal; 2017-04-26)
PROC: 02100Z9 Bypass Coronary Artery, One Artery from Left Internal Mammary, Open Approach (ICD-10-PCS; principal; 2017-04-26)
PROC: 03HY32Z Insertion of Monitoring Device into Upper Artery, Percutaneous Approach (ICD-10-PCS; principal; 2017-04-26)
PROC: 03CK0ZZ Extirpation of Matter from Right Internal Carotid Artery, Open Approach (ICD-10-PCS; principal; 2017-04-26)
PROC: 021109W Bypass Coronary Artery, Two Arteries from Aorta with Autologous Venous Tissue, Open Approach (ICD-10-PCS; principal; 2017-04-26)
PROC: 06BQ4ZZ Excision of Left Saphenous Vein, Percutaneous Endoscopic Approach (ICD-10-PCS; principal; 2017-04-26)
PROC: 03B10ZZ Excision of Left Internal Mammary Artery, Open Approach (ICD-10-PCS; principal; 2017-04-26)
PROC: 30233N1 Transfusion of Nonautologous Red Blood Cells into Peripheral Vein, Percutaneous Approach (ICD-10-PCS; 2017-04-26)
PROC: 0TB03ZX Excision of Right Kidney, Percutaneous Approach, Diagnostic (ICD-10-PCS; 2017-05-05)
DX: I21.4 Non-ST elevation (NSTEMI) myocardial infarction (principal); I50.23 Acute on chronic systolic (congestive) heart failure; J96.21 Acute and chronic respiratory failure with hypoxia; I47.2 Ventricular tachycardia; N18.4 Chronic kidney disease, stage 4 (severe); N17.9 Acute kidney failure, unspecified; E11.21 Type 2 diabetes mellitus with diabetic nephropathy; I27.2 Other secondary pulmonary hypertension; I13.0 Hypertensive heart and chronic kidney disease with heart failure and stage 1 through stage 4 chronic kidney disease, or unspecified chronic kidney disease; Z66 Do not resuscitate; N39.0 Urinary tract infection, site not specified; Z68.41 Body mass index [BMI] 40.0-44.9, adult; N13.8 Other obstructive and reflux uropathy; S37.39XA Other injury of urethra, initial encounter; I48.1 Persistent atrial fibrillation; E11.65 Type 2 diabetes mellitus with hyperglycemia; I25.110 Atherosclerotic heart disease of native coronary artery with unstable angina pectoris; E11.22 Type 2 diabetes mellitus with diabetic chronic kidney disease; I48.0 Paroxysmal atrial fibrillation; E78.5 Hyperlipidemia, unspecified; E03.9 Hypothyroidism, unspecified; E66.01 Morbid (severe) obesity due to excess calories; E61.1 Iron deficiency; N40.1 Benign prostatic hyperplasia with lower urinary tract symptoms; R31.0 Gross hematuria; R80.9 Proteinuria, unspecified; I65.23 Occlusion and stenosis of bilateral carotid arteries; G47.33 Obstructive sleep apnea (adult) (pediatric); Z79.4 Long term (current) use of insulin; J32.9 Chronic sinusitis, unspecified; I25.2 Old myocardial infarction; Z95.5 Presence of coronary angioplasty implant and graft; Z87.891 Personal history of nicotine dependence; Z82.49 Family history of ischemic heart disease and other diseases of the circulatory system; Z79.01 Long term (current) use of anticoagulants; Z79.82 Long term (current) use of aspirin; N31.9 Neuromuscular dysfunction of bladder, unspecified; K59.00 Constipation, unspecified; I25.5 Ischemic cardiomyopathy; Z79.899 Other long term (current) drug therapy
CPT/HCPCS: C1725; C1751; C1769; C1887; J0282; J0583; J0713; J1644; J1940; J2150; J2250; J2270; J2405; J2440; J2720; J3010; J3370; J3475; J3480; J3490; J7030; J7040; J7050; J7060; J7121; P9016; P9047; Q9967

== ENCOUNTER → 2017-05-23 | Outpatient (CLI) | payer MEDICARE, BC ==
[~2017-05-23] MED LIST: ACTOS 15 MG15 MG PO; ALENDRONATE SOD70 MG PO; ASPIRIN LO-DOSE81 MG PO; COLACE100 MG PO; CORDARONE,PACE200 MG PO; COREG 3.1253.125 MG PO; COZAAR25 MG PO; DOK100 MG PO; ELIQUIS2.5 MG PO; FLOMAX0.4 MG PO; FOSAMAX70 MG PO; GLUCOTROL XL10 MG PO; KEFLEX500 MG PO; LASIX40 MG PO; LEVEMIR100 UNIT/1 SUB-Q; LEVOTHROID (S100 MCG PO; LIPITOR20 M1 PO; MILK OF MA400 MG/5 M PO; MUCINEX600 MG PO; MUCUS ER600 MG PO; NITROFURANTOIN100 MG PO; NITROGLYCERIN0.6 MG TRANS; NORCO 5-325 TA1 EACH PO; NOVOLOG100 UNIT/M SUB-Q; OXYGEN M-15 INH; POTASSIUM CHLO10 MEQ PO; POTASSIUM CHLO20 ME1 PO; PYRIDIUM100 MG PO; SENNA8.6 MG PO; SOTALOL80 MG PO; SYMBICORT 16010.2 GM INH; TYLENOL325 MG PO; VITAMIN D-40400 UNIT PO; VITAMIN D250000 UNIT PO; ZAROXOLYN2.5 MG PO
[2017-05-23 10:53] LABS: BASOPHIL # 0.1 K/uL (0.0-0.2); BASOPHIL % 0.7 %; EOSINOPHIL # 0.5 K/uL (0.0-0.5); EOSINOPHIL % 5.8 %; HEMATOCRIT 38.7 % (33.0-50.0); HEMOGLOBIN 12.1 g/dL (11.0-16.0); IMMATURE GRANULOCYTE % 0.5 %; LYMPHOCYTE # 1.1 K/uL (0.8-4.0); LYMPHOCYTE % 12.7 %; MCH 29.6 pg (27.0-34.0); MCHC 31.3 gm/dL (32.0-36.5); MCV 94.6 fl (83.0-98.0); MONOCYTE # 0.7 K/uL (0.0-1.0); MONOCYTE % 8.2 %; MPV 9.2 fl (9.4-12.4); NEUTROPHIL % 72.1 %; NRBC % 0 /100WBC (0-0.00); RBC 4.09 M/uL (3.50-5.50); RDW-CV 14.7 % (11.9-14.6); WBC 8.3 K/uL (4.0-11.0)
[2017-05-23 10:55] LABS: PLATELET COUNT 249 K/uL (150-450)
[2017-05-23 11:08] LABS: ALBUMIN 2.6 gm/dL (3.5-5.0); ANION GAP 11.4 (10.0-19.0); CALCIUM 8.6 mg/dL (8.5-10.5); CREATININE 1.9 mg/dL (0.6-1.3); POTASSIUM 4.4 mMol/L (3.7-5.1); TOTAL BILIRUBIN 0.3 mg/dL (0.0-1.5); TOTAL PROTEIN 6.7 g/dL (6.0-8.4)
== END ==
LOC: LNHI 10:48
PROVIDERS: Thoracic Surgery (Cardiothoracic Vascular Surgery)
DX: I25.10 Atherosclerotic heart disease of native coronary artery without angina pectoris (principal); I10 Essential (primary) hypertension; R53.83 Other fatigue

== ENCOUNTER 2017-06-09 09:44 | Day surgery (SDC) | payer MEDICARE, BC ==
[~2017-06-09] VITALS: Ht 167.6 cm; Wt 103.7 kg
--- NOTE | ~2017-06-09 | OR ---
PATIENT'S NAME: AZAEL ZAMBRANO [facility] AGE: 86 Y [address] ROOM: [address] [address] [place] [facility] [place]: 06/09/2017 OR/Procedure Report DISCHARGE DATE: FAMILY PHYSICIAN: SARAH MARTINEZ ATTENDING PHYSICIAN: JODY BREWSTER SURGEON: Jody Brewster MD COMPUTER ENGINEERING TECHNICIAN: None. DATE OF PROCEDURE: 06/09/2017 PREOPERATIVE DIAGNOSES: 1. Benign prostatic hyperplasia with bladder outlet obstruction. 2. Urinary retention. POSTOPERATIVE DIAGNOSES: 1. Benign prostatic hyperplasia with bladder outlet obstruction. 2. Urinary retention. OPERATIVE PROCEDURE: Cystoscopy with UroLift procedure (prostatic urethral lift). INDICATION FOR PROCEDURE: The patient is a pleasant 86-year-old male with history of BPH with bladder outlet obstruction and urinary retention. He was explained the risks, benefits, indications, and alternatives to the above procedure and wished to proceed and consented freely. DESCRIPTION OF OPERATION: The patient was brought back to the operating room, where he was positioned in the supine position. The patient identification, procedure site and procedure were then verified. We also did verify that the patient had received IV cephalosporin antibiotic within an hour of beginning the procedure. The patient then underwent successful administration of monitored anesthesia care. The patient was then moved and placed in a low lithotomy position. His genital area was then prepped and draped in usual sterile fashion. I began by advancing the 20-Swedish cystoscope sheath with long bridge and 0-degree lens per urethra. His anterior urethra was within normal limits. His posterior urethra was notable for moderate bilobar hyperplasia of the prostate. His bladder was negative for any bladder tumors, cellules, or diverticulae. He did have moderate bladder trabeculation noted throughout. His ureteral orifices were noted to be in their orthotopic location. The cystoscope bridge was then replaced with the UroLift implant delivery device. The first treatment site was the patient's right side approximately 1.5 cm distal to the bladder neck. The distal tip of the delivery device was then angled laterally approximately 20 degrees at this position to compress the lateral lobe. The trigger was pulled thereby deploying a needle containing the implant through the prostate. The needle was then retracted allowing one end of the implant to be delivered to the PATIENT'S NAME: AZAEL ZAMBRANO [facility] AGE: 86 Y [address] ROOM: [address] [address] [place] [facility] [place]: 06/09/2017 OR/Procedure Report DISCHARGE DATE: FAMILY PHYSICIAN: SARAH MARTINEZ ATTENDING PHYSICIAN: JODY BREWSTER capsular surface of the prostate. The implant was then tensioned to assure capsular seating and removal of slack monofilament. The device was then angled back toward midline and slowly advanced proximally until verification with cystoscopy of the monofilament being centered in the delivery bay. With the final triggering, the urethral end piece was then affixed to the monofilament thereby tailoring the size and tension of the implant. Excess filament was severed with this maneuver. The device was then readvanced into the bladder. The opening effect from the implant placed was confirmed with cystoscopy. The above identical sequence was then repeated on the patient's left side. I then reinspected for successful placement of each implant as well as the degree of lateral lobe obstruction remaining. Two additional implants were delivered just proximal to the verumontanum in the same fashion, again 1 on the patient's right side and 1 on the left. After placement of the right distal implant near the apex, it did appear that we had a pull-through with the implant not seating on the prostatic capsule. I then used the grasping device to grab the implant with tabs and this was removed. I then placed an additional fifth implant in the same area to replace the implant that had pull-through. A total of 5 implants were fired with 4 implants remaining within the patient successfully. A final cystoscopy was then performed to inspect the location and state of each implant to assure proper seating and location. Final inspection also revealed an open and patent prostatic urethra with irrigation flow turned off. I then emptied his bladder and removed the cystoscope. The patient did tolerate the procedure well. The patient was then taken out of the lithotomy position where he was then awoken from monitored anesthesia care, transferred to the recovery bed and transported to the recovery room in good condition. COMPLICATIONS: None. DRAINS: None. ESTIMATED BLOOD LOSS: Minimal. FOLLOWUP PLAN: We will plan to observe the patient overnight with trial of void with likely discharge home tomorrow morning. JODY BREWSTER MD GP/holly /[id number] PATIENT'S NAME: AZAEL ZAMBRANO [facility] AGE: 86 Y [address] ROOM: [place] [address] [place] [facility] [place]: 06/09/2017 OR/Procedure Report DISCHARGE DATE: FAMILY PHYSICIAN: SARAH MARTINEZ ATTENDING PHYSICIAN: JODY BREWSTER CC: Tor Taylor MD d: 06/09/17 2359 t: 06/10/17 1016, OPERATIVE SUMMARY
[~2017-06-09 09:44] MED LIST changes: -DOK100 MG PO; -KEFLEX500 MG PO; -MUCINEX600 MG PO; -NORCO 5-325 TA1 EACH PO; -PYRIDIUM100 MG PO
[2017-06-09 10:34] LABS: BASOPHIL # 0.1 K/uL (0.0-0.2); BASOPHIL % 0.9 %; EOSINOPHIL # 0.4 K/uL (0.0-0.5); EOSINOPHIL % 3.5 %; HEMATOCRIT 40.4 % (33.0-50.0); HEMOGLOBIN 13.6 g/dL (11.0-16.0); IMMATURE GRANULOCYTE # 0.1 K/uL (0.0-0.3); IMMATURE GRANULOCYTE % 0.8 %; LYMPHOCYTE # 1.3 K/uL (0.8-4.0); LYMPHOCYTE % 12.3 %; MCH 29.9 pg (27.0-34.0); MCHC 33.7 gm/dL (32.0-36.5); MONOCYTE # 0.9 K/uL (0.0-1.0); MONOCYTE % 9.1 %; MPV 9.6 fl (9.4-12.4); NEUTROPHIL # (ANC) 7.5 K/uL (1.4-9.0); NEUTROPHIL % 73.4 %; NRBC % 0 /100WBC (0-0.00); RBC 4.55 M/uL (3.50-5.50); RDW-CV 14.4 % (11.9-14.6); WBC 10.2 K/uL (4.0-11.0)
[2017-06-09 10:38] LABS: MCV 88.8 fl (83.0-98.0); PLATELET COUNT 301 K/uL (150-450)
[2017-06-09 10:57] LABS: ALBUMIN 3.1 gm/dL (3.5-5.0); ANION GAP 15.3 (10.0-19.0); CALCIUM 9.4 mg/dL (8.5-10.5); CREATININE 3.8 mg/dL (0.6-1.3); POTASSIUM 3.3 mMol/L (3.7-5.1); TOTAL PROTEIN 7.6 g/dL (6.0-8.4)
[2017-06-09 10:58] LABS: TOTAL BILIRUBIN 0.6 mg/dL (0.0-1.5)
[2017-06-09] MEDS ORDERED: MUCINEX600 MG PO (11:27)
[2017-06-09] MEDS ORDERED: DOK100 MG PO ×2 (11:28→11:29)
[2017-06-10] MEDS ORDERED: NORCO 5-325 TA1 EACH PO (10:36)
[2017-06-10] MEDS ORDERED: PYRIDIUM100 MG PO (10:37)
[2017-06-10] MEDS ORDERED: KEFLEX500 MG PO (10:39)
== END 2017-06-10 11:54 | disposition disaster alternative care site (69) ==
LOC: GMSU 09:44 → GSDC 09:44 → GMSU 14:37 → GSDC 06-10 11:54
PROVIDERS: Urology
PROC: 0T7D8DZ Dilation of Urethra with Intraluminal Device, Via Natural or Artificial Opening Endoscopic (ICD-10-PCS; principal; 2017-06-09)
DX: N40.1 Benign prostatic hyperplasia with lower urinary tract symptoms (principal); N13.8 Other obstructive and reflux uropathy; R33.8 Other retention of urine; I48.0 Paroxysmal atrial fibrillation; E11.22 Type 2 diabetes mellitus with diabetic chronic kidney disease; I13.0 Hypertensive heart and chronic kidney disease with heart failure and stage 1 through stage 4 chronic kidney disease, or unspecified chronic kidney disease; N18.9 Chronic kidney disease, unspecified; I50.30 Unspecified diastolic (congestive) heart failure; E03.9 Hypothyroidism, unspecified; G47.33 Obstructive sleep apnea (adult) (pediatric); I25.10 Atherosclerotic heart disease of native coronary artery without angina pectoris; Z79.899 Other long term (current) drug therapy; Z79.01 Long term (current) use of anticoagulants; Z88.0 Allergy status to penicillin; Z88.1 Allergy status to other antibiotic agents; Z88.2 Allergy status to sulfonamides; Z95.1 Presence of aortocoronary bypass graft; Z98.890 Other specified postprocedural states
CPT/HCPCS: J0690; J2001; J7030; L8699